=== PATIENT | female | born 1995 | race Caucasian/White ===

== ENCOUNTER → 2019-01-19 | Outpatient (CLI) | payer BC, MEDICAID ==
--- NOTE | 2019-01-19 16:22 | Diagnostic Imaging Report ---
INDICATION: survey. TECHNIQUE: Multiple real-time grayscale images were obtained over the gravid uterus. COMPARISON: There are no prior studies available for comparison. FINDINGS: There is a single live fetus in cephalic presentation. heart motion was noted, and a rate of 153 BPM was recorded. There are no abnormalities identified, but the intracranial contents, the four-chamber heart view, and the spine were not optimally visualized. A short-term (4-6 week) follow-up exam would be recommended for further study. The growth parameters are fairly uniform. The placenta is posterior, and there is no previa. The amniotic fluid volume is within normal limits. The cervix was identified and measures 3.7 cm in length. IMPRESSION: 1. There is a single live fetus of approximately 19 weeks 6 day gestation, +/- 1.5 weeks. The EDC is June 09, 2019. 2. There were no abnormalities identified. However, the intracranial contents, four-chamber heart view, and the spine were not optimally visualized. Recommendations as above. 3. The growth parameters are fairly uniform. Biometrical measurements are as follows: Biparietal 4.49 cm, age 19 weeks 5 days. Head circumference 17.55 cm, age 20 weeks 1 days. Abdominal circumference 13.57 cm, age 19 weeks 1 days. Femur length 3.18 cm, age 20 weeks 0 days. Sonographic estimate age: 19 weeks 6 days. Sonographic estimated date of delivery: 06/09/2019. Estimated Weight: 296 gm (+/- 43 gm). LMP percentile: 58%. heart rate: 153 beats per minute. number: 1 of 1. Dictated by: Dictated on workstation # [id number]
== END ==
LOC: RAD 13:56
PROVIDERS: ATTEND Nurse Practitioner Women's Health
DX: Z36.89 Encounter for other specified antenatal screening (principal); Z3A.19 19 weeks gestation of pregnancy
CPT/HCPCS: 76805

== ENCOUNTER → 2019-02-19 | Outpatient (CLI) | payer BC, MEDICAID ==
--- NOTE | 2019-02-19 15:14 | Diagnostic Imaging Report ---
INDICATION: Follow-up anatomy. TECHNIQUE: Multiple real-time grayscale images were obtained over the gravid uterus. COMPARISON: 01/19/2019. FINDINGS: There is a single live fetus in a cephalic presentation. heart rate was recorded at 147 BPM. Placenta is posterior. Amniotic fluid volume appears normal. Follow-up anatomy demonstrates the brain, four-chamber heart view, and spine to be unremarkable on today's exam. IMPRESSION: Unremarkable follow-up obstetrical ultrasound. Dictated by: Dictated on workstation # [id number]
== END ==
LOC: RAD 13:25
PROVIDERS: ATTEND Obstetrics & Gynecology
DX: Z04.89 Encounter for examination and observation for other specified reasons (principal); Z34.92 Encounter for supervision of normal pregnancy, unspecified, second trimester; Z3A.00 Weeks of gestation of pregnancy not specified
CPT/HCPCS: 76805

== ENCOUNTER 2019-05-05 11:50 | Outpatient (CLI) | payer BC, MEDICAID ==
[~2019-05-05] VITALS: Ht 172.7 cm; Wt 119.5 kg
--- NOTE | 2019-05-05 11:45 | NUR ---
CHASE LOVELL presented to unit via AMBULATORY from HOME, with c/o POSS. PRE CLAMPSIA. CHASE LOVELL weighed, gowned, voided, and to bed. EFHM and TOCO applied, VS taken. CHASE LOVELL oriented to bed controls, call light, TV, heat, and A/C controls.
[2019-05-05 11:57] VITALS: BP 108/56
[2019-05-05 12:13] VITALS: BP 108/56
[2019-05-05 12:15] LABS: BILIRUBIN,URINE NEGATIVE (NEGATIVE); CLARITY,URINE CLEAR; COLOR,URINE YELLOW; GLUCOSE, URINE (UA) NEGATIVE (NEGATIVE); KETONES,URINE NEGATIVE (NEGATIVE); LEUKOCYTE ESTERASE ,URINE 3+ (NEGATIVE); NITRITE,URINE NEGATIVE (NEGATIVE); PH,URINE 6.5 (5-9); PROTEIN,URINE NEGATIVE (NEGATIVE)
[2019-05-05 12:17] VITALS: BP 102/63
[2019-05-05] MEDS ORDERED: PREN-37 PO (12:19)
[2019-05-05 12:39] LABS: BACTERIA,URINE TRACE /HPF; SQUAMOUS EPITHELIAL CELL,UR RARE /HPF
--- NOTE | 2019-05-05 13:24 | NUR ---
DR. SANTIAGO ON UNIT. NOTIFIED OF PT'S ARRIVAL, C/O, GESTATION, VS, REVIEW OF STRIP, UA RESULTS. ORDERS RECEIVED TO DISCHARGE HOME.
--- NOTE | 2019-05-05 13:45 | NUR ---
DISCHARGE PAPERS PROVIDED AND REVIEWED WITH PT, PT VERBALIZES UNDERSTANDING AND DENIES ANY QUESTIONS AT THIS TIME. PAPER SIGNED. PT AMBULATES OFF UNIT IN STABLE CONDITION ACC BY S/O.
--- NOTE | 2019-05-06 08:29 | Physician Query-Final Dx ---
ROMAIN JOHNSON 05/06/19 0829: Clinic Account Progress/Dx Physician Query: Please give diagnosis Please include # weeks gestation Date of Service May 05, 2019 at 11:50 KATRIN SANTIAGO DO 05/15/19 1410: Clinic Account Progress/Dx DIAGNOSIS: Diagnosis 34 week gestation worried well ROMAIN JOHNSON May 06, 2019 08:29 KATRIN SANTIAGO DO May 15, 2019 14:10
== END 2019-05-05 13:45 | disposition home or self-care (01) ==
LOC: WSo 11:50 → LDRP 11:51 → WSo 13:45
PROVIDERS: ATTEND Obstetrics & Gynecology
DX: O99.89 Other specified diseases and conditions complicating pregnancy, childbirth and the puerperium (principal); Z3A.34 34 weeks gestation of pregnancy
CPT/HCPCS: 81000; 87088; 99212

== ENCOUNTER 2019-06-08 20:23 | Inpatient (IN) | payer BC, MEDICAID ==
[~2019-06-08] VITALS: Ht 172.7 cm; Wt 121.0 kg
--- NOTE | 2019-06-08 20:20 | NUR ---
CHASE LOVELL presented to unit via ambulation from ED, accompanied by s.o., with c/o CONTRACTIONS. CHASE LOVELL weighed, gowned, voided, and to bed. EFHM and TOCO applied, VS taken. CHASE LOVELL oriented to bed controls, call light, TV, heat, and A/C controls.
[~2019-06-08 20:23] MED LIST: PREN-37 PO
[2019-06-08 20:37] VITALS: BP 133/80
--- NOTE | 2019-06-08 21:30 | NUR ---
This Rn called Dr Walters to notify of patient arrival and complaints of contractions. Notified of contraction pattern, initial and latest sve, FHR variability. New orders to contact Dr Peace received.
--- NOTE | 2019-06-08 21:33 | NUR ---
This RN called Dr Peace to notify of patient arrival and complaints of contractions. Notified of arrival time, initial sve and latest, contraction pattern, vs, and FHR variability. New orders for admission received.
[2019-06-08] MEDS ORDERED: morphine INJ 10 MG/ML 1ML (SYR OR VIAL) IVP STA (21:38)
[2019-06-08] MEDS ORDERED: MINERAL OIL CONCENTRATE 99.9% 15 ML UDC TOP PRN (21:45)
--- OUTSIDE RECORDS SUMMARY | 2019-06-08 21:47 | XMS REPORT | Clinical Summary ---
Author Author Admin, Robyn EDWARDS Organization [facility] Address Unknown Phone Unavailable Allergies, Adverse Reactions, Alerts Allergy Name Reaction Description Start Date Severity Status Pr ovider No Known Allergies Jose Manuel Gaytan RMA Conditions or Problems Problem Name Problem Code Onset Date Status Entry Date Provider Comment Standard Description Annotate Upper respiratory infection 465.9 Resolved Pratik Lechuga MD Acute upper respiratory infections of un specified site Upper respiratory infection, viral 465.9 Active 2 Pratik Lechuga MD Acute upper respiratory infections of un specified site Upper respiratory infection ICD-465.9 Inactive Pratik Lechuga MD Medication List Medication Instructions Start Date Stop Date Generic Name NDC Status Provider Patient Instruction PREDNISONE 20 MG ORAL TABS 2 po qd x 4 days PRE DNISONE 84308975366 No Longer Active Pratik Lechuga MD Active NEXPLANON 68 MG SUBCUTANEOUS IMPLANT in left arm E TONOGESTREL 62469247142 Active Pratik Lechuga MD Active TESSALON PERLES 100 MG CAPS 1 three times a day as needed for co ugh BENZONATATE 08889655616 No Longer Active Pratik Lechuga MD Active TESSALON PERLES 100 MG CAPS 1 three times a day as needed for co ugh TESSALON PERLES 100 MG CAPS 676231 BENZONATATE Inac tive PREDNISONE 20 MG ORAL TABS 2 po qd x 4 days PREDNISONE 20 MG ORAL TABS 352981 PREDNISONE Inactive Vital Signs Date Name Value Unit Range Description blood pressure, diastolic 81 mm[Hg] BP bravo blood pressure, systolic 123 mm[Hg] BP sys pulse rate E&M 88 /min Heart rate temperature E&M 97.6 [degF] Body temp erature weight E&M 198.31 [lb_av] Weight Measure d blood pressure, diastolic 77 mm[Hg] BP bravo blood pressure, systolic 108 mm[Hg] BP sys height E&M 58 [in_us] Bdy height pulse rate E&M 106 /min Heart rate temperature E&M 100.4 [degF] Body temp erature weight E&M 186 [lb_av] Weight Measure d Encounters Code Encounter Date Provider Facility CPT-24915 Level 3 Est. Patient 10:59:06 CDT Pratik Lechuga MD [facility] CPT-96284 Level 2 New Patient 18:06:13 UI ARCHITECT Abad calvo MD [facility]
--- OUTSIDE RECORDS SUMMARY | 2019-06-08 21:47 | XMS REPORT | Clinical Summary ---
Author Author Admin, Robyn EDWARDS Organization [facility] Address Unknown Phone Unavailable Allergies, Adverse Reactions, Alerts Allergy Name Reaction Description Start Date Severity Status Pr ovider No Known Allergies Corrie Aldrich MA Conditions or Problems Problem Name Problem Code Onset Date Status Entry Date Provider Comment Standard Description Annotate Upper respiratory infection 465.9 Resolved Pratik Lechuga MD Acute upper respiratory infections of un specified site Upper respiratory infection, viral 465.9 Active 2 Pratik Lechuga MD Acute upper respiratory infections of un specified site Contraceptive management V25.9 Active Maria R najera MD Encounter for unspecified contraceptive management Std screening V74.5 Active Maria R You MD Screening examination for venereal disease Upper respiratory infection ICD-465.9 Inactive Pratik Lechuga MD Medication List Medication Instructions Start Date Stop Date Generic Name NDC Status Provider Patient Instruction AZITHROMYCIN 500 MG ORAL TABLET 2 tabs po x 1 AZITHROMYCIN 79051344602 No Longer Active Flori Tovar LPN Acti ve NEXPLANON 68 MG SUBCUTANEOUS IMPLANT in left arm 0 ETONOGESTREL 73388580226 No Longer Active Maria R You MD Active PREDNISONE 20 MG ORAL TABLET 2 po qd x 4 days P REDNISONE 33648945454 No Longer Active Pratik Lechuga MD Active TESSALON PERLES 100 MG ORAL CAPSULE 1 three times a day as n eeded for cough BENZONATATE 46961771431 No Longer Active Pratik Krueger MD Active TESSALON PERLES 100 MG ORAL CAPSULE 1 three times a day as n eeded for cough TESSALON PERLES 100 MG ORAL CAPSULE 399101 BENZO NATATE Inactive NEXPLANON 68 MG SUBCUTANEOUS IMPLANT in left arm 2017 NEXPLANON 68 MG SUBCUTANEOUS IMPLANT ETONOGESTREL Inactive PREDNISONE 20 MG ORAL TABLET 2 po qd x 4 days PREDNISONE 20 MG ORAL TABLET 261087 PREDNISONE Inactive AZITHROMYCIN 500 MG ORAL TABLET 2 tabs po x 1 AZITHROMYCIN 500 MG ORAL TABLET 2340413 AZITHROMYCIN Inactive Vital Signs Date Name Value Unit Range Description blood pressure, diastolic 89 mm[Hg] BP bravo blood pressure, systolic 137 mm[Hg] BP sys height E&M 58 [in_us] Bdy height pulse rate E&M 94 /min Heart rate temperature E&M 977 [degF] Body temp erature blood pressure, diastolic 81 mm[Hg] BP bravo blood pressure, systolic 123 mm[Hg] BP sys pulse rate E&M 88 /min Heart rate temperature E&M 97.6 [degF] Body temp erature weight E&M 198.31 [lb_av] Weight Measure d Diagnostic Results Date Name Value Unit Range Description Lab Report: Chlamydia/GC APTIMA/11782, H EPATITIS B S AG W/, HIV-1/2 Agn/ ... - Chemistry hepatitis B surface antigen NON-REACTIVE NON-RE ACTIVE rapid plasma reagin antibody titer NON-REACTIVE NON-REACTIVE Lab Report: Chlamydia/GC APTIMA/34838, H EPATITIS B S AG W/, HIV-1/2 Agn/ ... - Lab chlamydia DNA probe DETECTED NOT DETECTED Lab Report: Chlamydia/GC APTIMA/46632, H EPATITIS B S AG W/, HIV-1/2 Agn/ ... - Microbiology Neisseria gonorrhoeae DNA probe NOT DETECTED NO T DETECTED Office Visit: nexplanon removalt/replace ment - Chemistry human chorionic gonadotropin , urine, qualitative (urine test) Negative Encounters Code Encounter Date Provider Facility CPT-72377 Level 3 New Patient 11:53:27 SPA ASSOCIATE Maria R mitchell MD [facility] CPT-58052 Level 3 Est. Patient 10:59:06 CDT Pratik Lechuga MD [facility] CPT-56150 Level 2 New Patient 18:06:13 SPA ASSOCIATE Abad calvo MD [facility] Procedures Code Procedure Name Date Entry Date Standard Desc ription CPT-58700 Nexplanon Removal with Reinsertion 11:53:27 SPA ASSOCIATE CPT-J7307 Nexplanon (Implant) 11:53:27 SPA ASSOCIATE
--- OUTSIDE RECORDS SUMMARY | 2019-06-08 21:47 | XMS REPORT | Clinical Summary ---
Author Author Admin, Robyn EDWARDS Organization [facility] Address Unknown Phone Unavailable Allergies, Adverse Reactions, Alerts Allergy Name Reaction Description Start Date Severity Status Pr ovider Allergies Unknown Conditions or Problems Problem Name Problem Code Onset Date Status Entry Date Provider Comment Standard Description Annotate Upper respiratory infection 465.9 Active Abad Larose MD Acute upper respiratory infections of un specified site Medication List Medication Instructions Start Date Stop Date Generic Name NDC Status Provider Patient Instruction TESSALON PERLES 100 MG CAPS 1 three times a day as needed for co ugh BENZONATATE 51594766371 Active Abad Larose MD Acti ve Vital Signs Date Name Value Unit Range Description blood pressure, diastolic - 8462-4 77 mm[Hg] BP bravo blood pressure, systolic - 8480-6 108 mm[Hg] BP sys height E&M - 8302-2 58 [in_us] Bdy h eight pulse rate E&M - 8867-4 106 /min H eart rate temperature E&M 100.4 [degF] Body temp erature weight E&M - 3141-9 186 [lb_av] Weigh t Measured Encounters Code Encounter Date Provider Facility CPT-17718 Level 2 New Patient 18:06:13 ELECTRIC POWER LINE EXAMINER Abad calvo MD [facility]
--- OUTSIDE RECORDS SUMMARY | 2019-06-08 21:47 | XMS REPORT | Clinical Summary ---
Author Author Admin, Robyn EDWARDS Organization [facility] Address Unknown Phone Unavailable Allergies, Adverse [...] TABLET 2 tabs po x 1 AZITHROMYCIN 52890461578 No Longer Active Flori Tovar LPN Acti ve NEXPLANON 68 MG SUBCUTANEOUS IMPLANT in left arm 0 ETONOGESTREL 96234718553 No Longer Active Maria R You MD Active PREDNISONE 20 MG ORAL TABLET 2 po qd x 4 days P REDNISONE 75386482663 No Longer Active Pratik Lechuga MD Active TESSALON PERLES 100 MG ORAL CAPSULE 1 three times a day as n eeded for cough BENZONATATE 75708280345 No Longer Active Pratik Krueger MD Active TESSALON PERLES 100 MG ORAL CAPSULE 1 three times a day as n eeded for cough TESSALON PERLES 100 MG ORAL CAPSULE 373360 BENZO NATATE Inactive NEXPLANON 68 MG SUBCUTANEOUS IMPLANT in left arm 2017 NEXPLANON 68 MG SUBCUTANEOUS IMPLANT ETONOGESTREL Inactive PREDNISONE 20 MG ORAL TABLET 2 po qd x 4 days PREDNISONE 20 MG ORAL TABLET 313264 PREDNISONE Inactive AZITHROMYCIN 500 MG ORAL TABLET 2 tabs po x 1 AZITHROMYCIN 500 MG ORAL TABLET 3613998 AZITHROMYCIN Inactive Vital Signs Date Name Value [...] Value Unit Range Description Lab Report: Chlamydia/GC APTIMA/39217, H EPATITIS B S AG W/, HIV-1/2 Agn/ ... - Chemistry hepatitis B surface antigen NON-REACTIVE NON-RE ACTIVE rapid plasma reagin antibody titer NON-REACTIVE NON-REACTIVE Lab Report: Chlamydia/GC APTIMA/79007, H EPATITIS B S AG W/, HIV-1/2 Agn/ ... - Lab chlamydia DNA probe DETECTED NOT DETECTED Lab Report: Chlamydia/GC APTIMA/75534, H EPATITIS B S AG W/, HIV-1/2 Agn/ ... - Microbiology Neisseria gonorrhoeae DNA probe NOT DETECTED NO T DETECTED Office Visit: nexplanon removalt/replace ment - Chemistry human chorionic gonadotropin , urine, qualitative (urine test) Negative Encounters Code Encounter Date Provider Facility CPT-78193 Level 3 New Patient 11:53:27 RESIDENT PHYSICIAN Maria R mitchell MD [facility] CPT-56892 Level 3 Est. Patient 10:59:06 CDT Pratik Lechuga MD [facility] CPT-82038 Level 2 New Patient 18:06:13 RESIDENT PHYSICIAN Abad calvo MD [facility] Procedures Code Procedure Name Date Entry Date Standard Desc ription CPT-89662 Nexplanon Removal with Reinsertion 11:53:27 RESIDENT PHYSICIAN CPT-J7307 Nexplanon (Implant) 11:53:27 RESIDENT PHYSICIAN
--- OUTSIDE RECORDS SUMMARY | 2019-06-08 21:47 | XMS REPORT | Clinical Summary ---
Author Author Admin, Robyn EDWARDS Organization [facility] Address Unknown Phone Unavailable Allergies, Adverse Reactions, [...] day as needed for co ugh BENZONATATE 32914058025 Active Abad Larose MD Acti ve Vital [...] Measured Encounters Code Encounter Date Provider Facility CPT-92083 Level 2 New Patient 18:06:13 TAX STAFF ACCOUNTANT Abad calvo MD [facility]
--- OUTSIDE RECORDS SUMMARY | 2019-06-08 21:47 | XMS REPORT | Clinical Summary ---
Author Author Admin, Robyn EDWARDS Organization [facility] Address Unknown Phone Unavailable Allergies, Adverse [...] TABLET 2 tabs po x 1 AZITHROMYCIN 48192050746 No Longer Active Flori Bhagati ve NEXPLANON 68 MG SUBCUTANEOUS IMPLANT in left arm 0 ETONOGESTREL 57632008599 No Longer Active Maria R You MD Active PREDNISONE 20 MG ORAL TABLET 2 po qd x 4 days P REDNISONE 53713096756 No Longer Active Pratik Lechuga MD Active TESSALON PERLES 100 MG ORAL CAPSULE 1 three times a day as n eeded for cough BENZONATATE 99273863467 No Longer Active Pratik Krueger MD Active TESSALON PERLES 100 MG ORAL CAPSULE 1 three times a day as n eeded for cough TESSALON PERLES 100 MG ORAL CAPSULE 587004 BENZO NATATE Inactive NEXPLANON 68 MG SUBCUTANEOUS IMPLANT in left arm 2017 NEXPLANON 68 MG SUBCUTANEOUS IMPLANT ETONOGESTREL Inactive PREDNISONE 20 MG ORAL TABLET 2 po qd x 4 days PREDNISONE 20 MG ORAL TABLET 454625 PREDNISONE Inactive AZITHROMYCIN 500 MG ORAL TABLET 2 tabs po x 1 AZITHROMYCIN 500 MG ORAL TABLET 0696346 AZITHROMYCIN Inactive Vital Signs Date Name Value [...] Value Unit Range Description Lab Report: Chlamydia/GC APTIMA/13874, H EPATITIS B S AG W/, HIV-1/2 Agn/ ... - Chemistry hepatitis B surface antigen NON-REACTIVE NON-RE ACTIVE rapid plasma reagin antibody titer NON-REACTIVE NON-REACTIVE Lab Report: Chlamydia/GC APTIMA/09042, H EPATITIS B S AG W/, HIV-1/2 Agn/ ... - Lab chlamydia DNA probe DETECTED NOT DETECTED Lab Report: Chlamydia/GC APTIMA/78225, H EPATITIS B S AG W/, HIV-1/2 Agn/ ... - Microbiology Neisseria gonorrhoeae DNA probe NOT DETECTED NO T DETECTED Office Visit: nexplanon removalt/replace ment - Chemistry human chorionic gonadotropin , urine, qualitative (urine test) Negative Encounters Code Encounter Date Provider Facility CPT-65568 Level 3 New Patient 11:53:27 BACK STRIP MACHINE OPERATOR Maria R mitchell MD [facility] CPT-78740 Level 3 Est. Patient 10:59:06 CDT Pratik Lechuga MD [facility] CPT-56547 Level 2 New Patient 18:06:13 BACK STRIP MACHINE OPERATOR Abad calvo MD [facility] Procedures Code Procedure Name Date Entry Date Standard Desc ription CPT-15673 Nexplanon Removal with Reinsertion 11:53:27 BACK STRIP MACHINE OPERATOR CPT-J7307 Nexplanon (Implant) 11:53:27 BACK STRIP MACHINE OPERATOR
--- OUTSIDE RECORDS SUMMARY | 2019-06-08 21:47 | XMS REPORT | Clinical Summary ---
Author Author Admin, Robyn EDWARDS Organization [facility] Address Unknown Phone Unavailable Allergies, Adverse Reactions, [...] day as needed for co ugh BENZONATATE 71809977138 Active Abad Larose MD Acti ve Vital [...] Measured Encounters Code Encounter Date Provider Facility CPT-66276 Level 2 New Patient 18:06:13 ACCOUNT EXECUTIVE SOFTWARE SALES Abad calvo MD [facility]
--- OUTSIDE RECORDS SUMMARY | 2019-06-08 21:47 | XMS REPORT | Clinical Summary ---
Author Author Admin, Robyn EDWARDS Organization [facility] Address Unknown Phone Unavailable Allergies, Adverse [...] day as needed for co ugh BENZONATATE 47804848812 Active Abad Larose MD Acti ve Vital [...] Measured Encounters Code Encounter Date Provider Facility CPT-54341 Level 2 New Patient 18:06:13 EXPANDING MACHINE OPERATOR Abad calvo MD [facility]
--- OUTSIDE RECORDS SUMMARY | 2019-06-08 21:47 | XMS REPORT | Clinical Summary ---
Author Author Admin, Robyn EDWARDS Organization [facility] Address Unknown Phone Unavailable Allergies, [...] po qd x 4 days PRE DNISONE 82760959675 Active Pratik Lechuga MD Active NEXPLANON 68 MG SUBCUTANEOUS IMPLANT in left arm E TONOGESTREL 75441917638 Active Pratik Lechuga MD Active TESSALON PERLES 100 MG CAPS 1 three times a day as needed for co ugh BENZONATATE 25031730833 No Longer Active Pratik Lechuga MD Active TESSALON PERLES 100 MG CAPS 1 three times a day as needed for co ugh TESSALON PERLES 100 MG CAPS 241824 BENZONATATE Inac tive Vital Signs Date Name Value Unit Range [...] d Encounters Code Encounter Date Provider Facility CPT-41956 Level 3 Est. Patient 10:59:06 CDT Pratik Lechuga MD [facility] CPT-89597 Level 2 New Patient 18:06:13 RAND CEMENTER Abad calvo MD [facility]
--- OUTSIDE RECORDS SUMMARY | 2019-06-08 21:47 | XMS REPORT | Clinical Summary ---
Author Author Admin, Robyn EDWARDS Organization [facility] Address Unknown Phone Unavailable Allergies, [...] day as needed for co ugh BENZONATATE 12806013424 Active Abad Larose MD Acti ve Vital [...] Measured Encounters Code Encounter Date Provider Facility CPT-29822 Level 2 New Patient 18:06:13 NEWS ASSISTANT Abad calvo MD [facility]
--- OUTSIDE RECORDS SUMMARY | 2019-06-08 21:47 | XMS REPORT | Clinical Summary ---
Author Author Admin, Robyn EDWARDS Organization [facility] Address Unknown Phone Unavailable Allergies, Adverse [...] po qd x 4 days PRE DNISONE 49232919025 Active Pratik Lechuga MD Active NEXPLANON 68 MG SUBCUTANEOUS IMPLANT in left arm E TONOGESTREL 60742265745 Active Pratik Lechuga MD Active TESSALON PERLES 100 MG CAPS 1 three times a day as needed for co ugh BENZONATATE 34797586298 No Longer Active Pratik Lechuga MD Active TESSALON PERLES 100 MG CAPS 1 three times a day as needed for co ugh TESSALON PERLES 100 MG CAPS 412716 BENZONATATE Inac tive Vital Signs Date Name [...] d Encounters Code Encounter Date Provider Facility CPT-20603 Level 3 Est. Patient 10:59:06 CDT Pratik Lechuga MD [facility] CPT-89331 Level 2 New Patient 18:06:13 MOVIE PROJECTIONIST Abad calvo MD [facility]
--- OUTSIDE RECORDS SUMMARY | 2019-06-08 21:47 | XMS REPORT | Clinical Summary ---
Author Author Admin, Robyn EDWARDS Organization [facility] Address Unknown Phone Unavailable Allergies, Adverse Reactions, [...] TABLET 2 tabs po x 1 AZITHROMYCIN 43654259317 No Longer Active Flori Tovar LPN Acti ve NEXPLANON 68 MG SUBCUTANEOUS IMPLANT in left arm 0 ETONOGESTREL 05829272751 No Longer Active Maria R You MD Active PREDNISONE 20 MG ORAL TABLET 2 po qd x 4 days P REDNISONE 25835151727 No Longer Active Pratik Lechuga MD Active TESSALON PERLES 100 MG ORAL CAPSULE 1 three times a day as n eeded for cough BENZONATATE 57641943249 No Longer Active Pratik Krueger MD Active TESSALON PERLES 100 MG ORAL CAPSULE 1 three times a day as n eeded for cough TESSALON PERLES 100 MG ORAL CAPSULE 985495 BENZO NATATE Inactive NEXPLANON 68 MG SUBCUTANEOUS IMPLANT in left arm 2017 NEXPLANON 68 MG SUBCUTANEOUS IMPLANT ETONOGESTREL Inactive PREDNISONE 20 MG ORAL TABLET 2 po qd x 4 days PREDNISONE 20 MG ORAL TABLET 216707 PREDNISONE Inactive AZITHROMYCIN 500 MG ORAL TABLET 2 tabs po x 1 AZITHROMYCIN 500 MG ORAL TABLET 4924395 AZITHROMYCIN Inactive Vital Signs Date Name Value [...] Value Unit Range Description Lab Report: Chlamydia/GC APTIMA/13864, H EPATITIS B S AG W/, HIV-1/2 Agn/ ... - Chemistry hepatitis B surface antigen NON-REACTIVE NON-RE ACTIVE rapid plasma reagin antibody titer NON-REACTIVE NON-REACTIVE Lab Report: Chlamydia/GC APTIMA/61678, H EPATITIS B S AG W/, HIV-1/2 Agn/ ... - Lab chlamydia DNA probe DETECTED NOT DETECTED Lab Report: Chlamydia/GC APTIMA/72597, H EPATITIS B S AG W/, HIV-1/2 Agn/ ... - Microbiology Neisseria gonorrhoeae DNA probe NOT DETECTED NO T DETECTED Office Visit: nexplanon removalt/replace ment - Chemistry human chorionic gonadotropin , urine, qualitative (urine test) Negative Encounters Code Encounter Date Provider Facility CPT-16847 Level 3 New Patient 11:53:27 PLATFORM SUPERVISOR Maria R mitchell MD [facility] CPT-67464 Level 3 Est. Patient 10:59:06 CDT Pratik Lechuga MD [facility] CPT-89949 Level 2 New Patient 18:06:13 PLATFORM SUPERVISOR Abad calvo MD [facility] Procedures Code Procedure Name Date Entry Date Standard Desc ription CPT-24316 Nexplanon Removal with Reinsertion 11:53:27 PLATFORM SUPERVISOR CPT-J7307 Nexplanon (Implant) 11:53:27 PLATFORM SUPERVISOR
--- OUTSIDE RECORDS SUMMARY | 2019-06-08 21:47 | XMS REPORT | Clinical Summary ---
Author Author Admin, Robyn EDWARDS Organization [facility] Address Unknown Phone Unavailable Allergies, Adverse [...] TABLET 2 tabs po x 1 AZITHROMYCIN 01363529501 No Longer Active Flori Tovar LPN Acti ve NEXPLANON 68 MG SUBCUTANEOUS IMPLANT in left arm 0 ETONOGESTREL 40606027011 No Longer Active Maria R You MD Active PREDNISONE 20 MG ORAL TABLET 2 po qd x 4 days P REDNISONE 96391522807 No Longer Active Pratik Lechuga MD Active TESSALON PERLES 100 MG ORAL CAPSULE 1 three times a day as n eeded for cough BENZONATATE 51585339331 No Longer Active Pratik Krueger MD Active TESSALON PERLES 100 MG ORAL CAPSULE 1 three times a day as n eeded for cough TESSALON PERLES 100 MG ORAL CAPSULE 405968 BENZO NATATE Inactive NEXPLANON 68 MG SUBCUTANEOUS IMPLANT in left arm 2017 NEXPLANON 68 MG SUBCUTANEOUS IMPLANT ETONOGESTREL Inactive PREDNISONE 20 MG ORAL TABLET 2 po qd x 4 days PREDNISONE 20 MG ORAL TABLET 675185 PREDNISONE Inactive AZITHROMYCIN 500 MG ORAL TABLET 2 tabs po x 1 AZITHROMYCIN 500 MG ORAL TABLET 4669700 AZITHROMYCIN Inactive Vital Signs Date Name Value [...] Value Unit Range Description Lab Report: Chlamydia/GC APTIMA/53802, H EPATITIS B S AG W/, HIV-1/2 Agn/ ... - Chemistry hepatitis B surface antigen NON-REACTIVE NON-RE ACTIVE rapid plasma reagin antibody titer NON-REACTIVE NON-REACTIVE Lab Report: Chlamydia/GC APTIMA/57647, H EPATITIS B S AG W/, HIV-1/2 Agn/ ... - Lab chlamydia DNA probe DETECTED NOT DETECTED Lab Report: Chlamydia/GC APTIMA/80712, H EPATITIS B S AG W/, HIV-1/2 Agn/ ... - Microbiology Neisseria gonorrhoeae DNA probe NOT DETECTED NO T DETECTED Office Visit: nexplanon removalt/replace ment - Chemistry human chorionic gonadotropin , urine, qualitative (urine test) Negative Encounters Code Encounter Date Provider Facility CPT-18475 Level 3 New Patient 11:53:27 CURRICULUM DEVELOPMENT COORDINATOR Maria R mitchell MD [facility] CPT-32975 Level 3 Est. Patient 10:59:06 CDT Pratik Lechuga MD [facility] CPT-64032 Level 2 New Patient 18:06:13 CURRICULUM DEVELOPMENT COORDINATOR Abad calvo MD [facility] Procedures Code Procedure Name Date Entry Date Standard Desc ription CPT-28316 Nexplanon Removal with Reinsertion 11:53:27 CURRICULUM DEVELOPMENT COORDINATOR CPT-J7307 Nexplanon (Implant) 11:53:27 CURRICULUM DEVELOPMENT COORDINATOR
--- OUTSIDE RECORDS SUMMARY | 2019-06-08 21:47 | XMS REPORT | Clinical Summary ---
Author Author Admin, Robyn EDWARDS Organization [facility] Address Unknown Phone Unavailable Allergies, Adverse Reactions, Alerts Allergy Name Reaction Description Start Date Severity Status Pr ovider No Known Allergies Wayneperi Condonehart RMA Conditions or Problems Problem Name Problem [...] Generic Name NDC Status Provider Patient Instruction NEXPLANON 68 MG SUBCUTANEOUS IMPLANT in left arm 0 ETONOGESTREL 28476601016 No Longer Active Maria R You MD Active PREDNISONE 20 MG ORAL TABLET 2 po qd x 4 days P REDNISONE 88001132667 No Longer Active Pratik Lechuga MD Active TESSALON PERLES 100 MG ORAL CAPSULE 1 three times a day as n eeded for cough BENZONATATE 85821999614 No Longer Active Pratik Krueger MD Active TESSALON PERLES 100 MG ORAL CAPSULE 1 three times a day as n eeded for cough TESSALON PERLES 100 MG ORAL CAPSULE 372840 BENZO NATATE Inactive NEXPLANON 68 MG SUBCUTANEOUS IMPLANT in left arm 2017 NEXPLANON 68 MG SUBCUTANEOUS IMPLANT ETONOGESTREL Inactive PREDNISONE 20 MG ORAL TABLET 2 po qd x 4 days PREDNISONE 20 MG ORAL TABLET 842866 PREDNISONE Inactive Vital Signs Date Name Value Unit Range Description blood pressure, diastolic 81 mm[Hg] BP bravo blood pressure, systolic 123 mm[Hg] BP sys pulse rate E&M 88 /min Heart rate temperature E&M 97.6 [degF] Body temp erature weight E&M 198.31 [lb_av] Weight Measure d Diagnostic Results Date Name Value Unit Range Description Lab Report: Chlamydia/GC APTIMA/39751, H EPATITIS B S AG W/, HIV-1/2 Agn/ ... - Chemistry hepatitis B surface antigen NON-REACTIVE NON-RE ACTIVE rapid plasma reagin antibody titer NON-REACTIVE NON-REACTIVE Lab Report: Chlamydia/GC APTIMA/41787, H EPATITIS B S AG W/, HIV-1/2 Agn/ ... - Lab chlamydia DNA probe DETECTED NOT DETECTED Lab Report: Chlamydia/GC APTIMA/84233, H EPATITIS B S AG W/, HIV-1/2 Agn/ ... - Microbiology Neisseria gonorrhoeae DNA probe NOT DETECTED NO T DETECTED Encounters Code Encounter Date Provider Facility CPT-57266 Level 3 New Patient 11:53:27 BUSINESS DEVELOPMENT REPRESENTATIVE Maria R mitchell MD [facility] CPT-62251 Level 3 Est. Patient 10:59:06 CDT Pratik Lechuga MD [facility] CPT-57988 Level 2 New Patient 18:06:13 BUSINESS DEVELOPMENT REPRESENTATIVE Abad calvo MD [facility] Procedures Code Procedure Name Date Entry Date Standard Desc ription CPT-13735 Nexplanon Removal with Reinsertion 11:53:27 BUSINESS DEVELOPMENT REPRESENTATIVE CPT-J7307 Nexplanon (Implant) 11:53:27 BUSINESS DEVELOPMENT REPRESENTATIVE
--- OUTSIDE RECORDS SUMMARY | 2019-06-08 21:47 | XMS REPORT | Clinical Summary ---
Author Author Admin, Robyn EDWARDS Organization [facility] Address Unknown Phone Unavailable Allergies, Adverse [...] TABLET 2 tabs po x 1 AZITHROMYCIN 61722128367 No Longer Active Flori Tovar LPN Acti ve NEXPLANON 68 MG SUBCUTANEOUS IMPLANT in left arm 0 ETONOGESTREL 46356861363 No Longer Active Maria R You MD Active PREDNISONE 20 MG ORAL TABLET 2 po qd x 4 days P REDNISONE 00667348594 No Longer Active Pratik Lechuga MD Active TESSALON PERLES 100 MG ORAL CAPSULE 1 three times a day as n eeded for cough BENZONATATE 94949027091 No Longer Active Pratik Krueger MD Active TESSALON PERLES 100 MG ORAL CAPSULE 1 three times a day as n eeded for cough TESSALON PERLES 100 MG ORAL CAPSULE 171421 BENZO NATATE Inactive NEXPLANON 68 MG SUBCUTANEOUS IMPLANT in left arm 2017 NEXPLANON 68 MG SUBCUTANEOUS IMPLANT ETONOGESTREL Inactive PREDNISONE 20 MG ORAL TABLET 2 po qd x 4 days PREDNISONE 20 MG ORAL TABLET 592977 PREDNISONE Inactive AZITHROMYCIN 500 MG ORAL TABLET 2 tabs po x 1 AZITHROMYCIN 500 MG ORAL TABLET 7801955 AZITHROMYCIN Inactive Vital Signs Date Name Value [...] Value Unit Range Description Lab Report: Chlamydia/GC APTIMA/65385, H EPATITIS B S AG W/, HIV-1/2 Agn/ ... - Chemistry hepatitis B surface antigen NON-REACTIVE NON-RE ACTIVE rapid plasma reagin antibody titer NON-REACTIVE NON-REACTIVE Lab Report: Chlamydia/GC APTIMA/96727, H EPATITIS B S AG W/, HIV-1/2 Agn/ ... - Lab chlamydia DNA probe DETECTED NOT DETECTED Lab Report: Chlamydia/GC APTIMA/56246, H EPATITIS B S AG W/, HIV-1/2 Agn/ ... - Microbiology Neisseria gonorrhoeae DNA probe NOT DETECTED NO T DETECTED Office Visit: nexplanon removalt/replace ment - Chemistry human chorionic gonadotropin , urine, qualitative (urine test) Negative Encounters Code Encounter Date Provider Facility CPT-68911 Level 3 New Patient 11:53:27 PACK PRESS OPERATOR Maria R mitchell MD [facility] CPT-27439 Level 3 Est. Patient 10:59:06 CDT Pratik Lechuga MD [facility] CPT-65307 Level 2 New Patient 18:06:13 PACK PRESS OPERATOR Abad calvo MD [facility] Procedures Code Procedure Name Date Entry Date Standard Desc ription CPT-84422 Nexplanon Removal with Reinsertion 11:53:27 PACK PRESS OPERATOR CPT-J7307 Nexplanon (Implant) 11:53:27 PACK PRESS OPERATOR
--- OUTSIDE RECORDS SUMMARY | 2019-06-08 21:48 | XMS REPORT | Clinical Summary ---
[...] po qd x 4 days PRE DNISONE 21084769033 No Longer Active Pratik Lechuga MD Active NEXPLANON 68 MG SUBCUTANEOUS IMPLANT in left arm E TONOGESTREL 03893135961 Active Pratik Lechuga MD Active TESSALON PERLES 100 MG CAPS 1 three times a day as needed for co ugh BENZONATATE 14001642928 No Longer Active Pratik Lechuga MD Active TESSALON PERLES 100 MG CAPS 1 three times a day as needed for co ugh TESSALON PERLES 100 MG CAPS 353153 BENZONATATE Inac tive PREDNISONE 20 MG ORAL TABS 2 po qd x 4 days PREDNISONE 20 MG ORAL TABS 846076 PREDNISONE Inactive Vital Signs Date Name Value [...] d Encounters Code Encounter Date Provider Facility CPT-47140 Level 3 Est. Patient 10:59:06 CDT Pratik Lechuga MD [facility] CPT-84146 Level 2 New Patient 18:06:13 WARP TENSION TESTER Abad calvo MD [facility]
--- OUTSIDE RECORDS SUMMARY | 2019-06-08 21:48 | XMS REPORT | Clinical Summary ---
Author Author Admin, Robyn EDWARDS Organization [facility] Address Unknown Phone Unavailable Allergies, Adverse Reactions, [...] TABLET 2 tabs po x 1 AZITHROMYCIN 21432659383 No Longer Active Flori Tovar LPN Acti ve NEXPLANON 68 MG SUBCUTANEOUS IMPLANT in left arm 0 ETONOGESTREL 97621777248 No Longer Active Maria R You MD Active PREDNISONE 20 MG ORAL TABLET 2 po qd x 4 days P REDNISONE 24055592359 No Longer Active Pratik Lechuga MD Active TESSALON PERLES 100 MG ORAL CAPSULE 1 three times a day as n eeded for cough BENZONATATE 63604073145 No Longer Active Pratik Krueger MD Active TESSALON PERLES 100 MG ORAL CAPSULE 1 three times a day as n eeded for cough TESSALON PERLES 100 MG ORAL CAPSULE 943402 BENZO NATATE Inactive NEXPLANON 68 MG SUBCUTANEOUS IMPLANT in left arm 2017 NEXPLANON 68 MG SUBCUTANEOUS IMPLANT ETONOGESTREL Inactive PREDNISONE 20 MG ORAL TABLET 2 po qd x 4 days PREDNISONE 20 MG ORAL TABLET 684092 PREDNISONE Inactive AZITHROMYCIN 500 MG ORAL TABLET 2 tabs po x 1 AZITHROMYCIN 500 MG ORAL TABLET 6116619 AZITHROMYCIN Inactive Vital Signs Date Name Value [...] Value Unit Range Description Lab Report: Chlamydia/GC APTIMA/82479, H EPATITIS B S AG W/, HIV-1/2 Agn/ ... - Chemistry hepatitis B surface antigen NON-REACTIVE NON-RE ACTIVE rapid plasma reagin antibody titer NON-REACTIVE NON-REACTIVE Lab Report: Chlamydia/GC APTIMA/75006, H EPATITIS B S AG W/, HIV-1/2 Agn/ ... - Lab chlamydia DNA probe DETECTED NOT DETECTED Lab Report: Chlamydia/GC APTIMA/67559, H EPATITIS B S AG W/, HIV-1/2 Agn/ ... - Microbiology Neisseria gonorrhoeae DNA probe NOT DETECTED NO T DETECTED Office Visit: nexplanon removalt/replace ment - Chemistry human chorionic gonadotropin , urine, qualitative (urine test) Negative Encounters Code Encounter Date Provider Facility CPT-91157 Level 3 New Patient 11:53:27 CLINICAL ENGINEERING MANAGER Maria R mitchell MD [facility] CPT-91591 Level 3 Est. Patient 10:59:06 CDT Pratik Lechuga MD [facility] CPT-00527 Level 2 New Patient 18:06:13 CLINICAL ENGINEERING MANAGER Abad calvo MD [facility] Procedures Code Procedure Name Date Entry Date Standard Desc ription CPT-17850 Nexplanon Removal with Reinsertion 11:53:27 CLINICAL ENGINEERING MANAGER CPT-J7307 Nexplanon (Implant) 11:53:27 CLINICAL ENGINEERING MANAGER
--- OUTSIDE RECORDS SUMMARY | 2019-06-08 21:48 | XMS REPORT | CCD ---
Author Author Robyn Rasheed Organization Kasie Bautista MD, [facility] Address [address] [place] [address] Phone Care Team Providers Care Carpenter/Labor Name Role Phone PP Unavailable CCM Unavailable Summary Purpose Interface Exchange Insurance Providers Payer name Policy type / Coverage type Covered green party ID Effective Begin Date Effective End Date Blue Cross [facility] e Cross/Blue Shield [id number] Unknown Unknown Family history Father Diagnosis Age At Onset Skin cancer Unknown genetic disease Unknown Hypertension Unknown defect Unknown Hyperlipidemia Unknown Sister Diagnosis Age At Onset kidney disease Unknown Depression Unknown Asthma Unknown Brother Diagnosis Age At Onset Asthma Unknown Mother Diagnosis Age At Onset Depression Unknown Asthma Unknown Arthritis Unknown Skin cancer Unknown Social History Social History Element Codes Description Effective Dates Number of children Unknown 0 07/02/[address]: 05276750 Current every day smoker 07/02/2018 Number of years using tobacco Unknown 1 - 5 07/02/2018 Number of cigarettes/day Unknown < 10 07/02/[address]: 318300 Currently drinks alcohol 07/02/2018 Frequency of drinks SNOMED CT: 452584941 1-4 drinks per week 07/02/2018 Allergies, Adverse Reactions, Alerts Substance Reaction Codes Entered Date Inactivated Date Status NO KNOWN DRUG ALLERGIES Unknown 07/03/2018 No Inactive Date Active Past Medical History Illness Codes Condition Status Onset Date Resolved Date Low back pain ICD-9: 724.2 ICD-10: M54.5 Active 07/03/2018 Unknown Problems Condition Codes Effectiv e Dates Condition Status Low back pain ICD-9: 724.2 ICD-10: M54.5 07/03/2018 Active Medications Medication Codes Instruc tions Start Date Stop Date Sta tus Fill Instructions naproxen 500 mg tablet RxNorm: 072044 1 Tablet(s) PO BID 07/03/2018 07/07/2018 Active Medication Administered No Medication Administered data Immunizations No Immunization data Assessments Condition Codes Effectiv e Dates Low back pain ICD-10: M54.5 ICD-9: 724.2 07/03/2018 Reason For Visit Reason For Visit Effective Dates Notes back pain 07/03/2018 Results No Results data Review of Systems System Result Effective Dates Constitutional No recent illness 07/03/2018 Constitutional No chills 07/03/2018 Constitutional No diaphoresis 07/03/2018 Constitutional No fever 07/03/2018 Eyes No eye erythema 10/2018 Ears/Nose/Throat/Neck No nasal allergies 07/03/2018 Ears/Nose/Throat/Neck No nasal discharge 07/03/2018 Cardiovascular No chest pain/pressure 07/03/2018 Cardiovascular No dyspnea 07/03/2018 Respiratory No chest congestion 07/03/2018 Respiratory No cough 10/2018 Gastrointestinal No abdominal pain 07/03/2018 Gastrointestinal No constipation 07/03/2018 Gastrointestinal No diarrhea 07/03/2018 Gastrointestinal No hematochezia 07/03/2018 Gastrointestinal No melena 07/03/2018 Gastrointestinal No nausea 07/03/2018 Gastrointestinal No vomiting 07/03/2018 Musculoskeletal No joint complaint 07/03/2018 Dermatologic No rash 10/2018 Neurologic No alteration of consciousness 07/03/2018 Neurologic No mental status change 07/03/2018 Physical Exam Exam Name System Name It em Name Status Result Effective Dates Notes Full Exam - General 1994 Constitutional general appearance Overall: well developed 07/03/2018 None Full Exam - General 1994 Constitutional general appearance Overall: in no acute distress 07/03/2018 None Full Exam - General 1994 Constitutional general appearance Overall: well nourished 07/03/2018 None Full Exam - General 1994 Eyes conjunctiva/eyelids Overall: conjunctiva clear 07/03/2018 None Full Exam - General 1994 Eyes conjunctiva/eyelids Overall: cornea clear 07/03/2018 None Full Exam - General 1994 Eyes conjunctiva/eyelids Overall: eyelids normal 07/03/2018 None Full Exam - General 1994 Eyes pupils and irises Overall: pupils equal, round, reactive to light and accomodation 07/03/2018 None Full Exam - General 1994 Ears/Nose/Throat otoscopic exam Overall: external auditory canals clear 07/03/2018 None Full Exam - General 1994 Ears/Nose/Throat otoscopic exam Overall: tympanic membranes clear 07/03/2018 None Full Exam - General 1994 Ears/Nose/Throat lips/teeth/gingiva Overall: benign lips 07/03/2018 None Full Exam - General 1994 Ears/Nose/Throat oral cavity/pharynx/larynx Overall: oral mucosa clear 07/03/2018 None Full Exam - General 1994 Ears/Nose/Throat oral cavity/pharynx/larynx Overall: oropharyngeal mucosa clear 07/03/2018 None Full Exam - General 1994 Respiratory auscultation Overall: breath sounds clear bilaterally 07/03/2018 None Full Exam - General 1994 Respiratory respiratory effort/rhythm Overall: no retractions 07/03/2018 None Full Exam - General 1994 Respiratory respiratory effort/rhythm Overall: normal rate 07/03/2018 None Full Exam - General 1994 Cardiovascular extremities Overall: no clubbing 07/03/2018 None Full Exam - General 1994 Cardiovascular auscultation of heart Overall: regular rate 07/03/2018 None Full Exam - General 1994 Cardiovascular auscultation of heart Overall: normal heart sounds 07/03/2018 None Full Exam - General 1994 Abdomen abdominal exam Overall: no tenderness 07/03/2018 None Full Exam - General 1994 Abdomen abdominal exam Overall: normal bowel sounds 07/03/2018 None Full Exam - General 1994 Musculoskeletal gait and station Overall: normal gait 07/03/2018 None Full Exam - General 1994 Musculoskeletal gait and station Overall: normal station 07/03/2018 None Full Exam - General 1994 Musculoskeletal head and neck Overall: head atraumatic 07/03/2018 None Full Exam - General 1994 Neurologic cranial nerves Overall: crainial nerves 2 - 12 grossly intact 07/03/2018 None Full Exam - General 1994 Psychiatric orientation/consciousness Overall: oriented to person, place and time 07/03/2018 None Full Exam - General 1994 Psychiatric mood and affect Overall: normal mood and affect 07/03/2018 None Full Exam - General 1994 Psychiatric appearance Overall: well-groomed, good eye contact 07/03/2018 None Full Exam - General 1994 Musculoskeletal spine, ribs and pelvis Spine: tender @ lumbar spine 07/03/2018 None Full Exam - General 1994 Musculoskeletal spine, ribs and pelvis Sacroiliac joints: tender left sacroiliac joint 07/03/2018 None Procedures No Procedures data Vital Signs Date Vital 07/03/2018 Blood Pressure 1: 128/72 Code: 8480-6 BMI: 39.2 Code: 84569-5 Heart Rate 1: 86 bpm Height: 5'8" SpO2: 98% Weight: 258 lbs Functional Status No Functional Status data History of Present Illness Symptom Name Status Resu lt Effective Date Notes Location lumbar-sacral spine 07/03/2018 None Quality acute 07/03/2018 None Onset and Resolution s udden in onset 07/03/2018 None Pertinent Findings Den ies fever 07/03/2018 None Advance Directives No Advance Directive data Encounters Encounter Performer Loca tion Codes Date OFFICE VISIT, NEW - LEVEL 4 Diagnosis: Low back pain[ICD10: M54.5] Kriss Bautista MD, [facility] CPT-4: 75989 07/03/2018 Plan of Care Planned Activity Notes C odes Status Date Care Plan: Referral Order SNOMED-CT : 932487216 Pending 07/04/2018 Visit Plan: Low back pain- the gisella ent was instructed in appropriate posture, need for weight loss to alleviate abdominal obesity that is worsening the patient's back pain.. The pt is to use prn antiinflammatories to manage acute pain. The patient is to call the office if the pain is worsening or does not improve. 07/03/2018 Appointment: Kriss Rasheed WPtel: [address] [place], [place] [phone] New Patient 07/03/2018 Patient Education: Patient Medication Summary Completed 07/03/2018 Patient Education: Back Pain Completed 07/03/2018 Referral: Kathia Peace WPtel: [address] [place], [place] [id number] Referral Initiated Instructions Comment . Low back pain- the patient was instructed in appropriate posture, need for weight loss to alleviate abdominal obesity that is worsening the patient's back pain.. The pt is to use prn antiinflammatories to manage acute pain. The patient is to call the office if the pain is worsening or does not improve.
--- OUTSIDE RECORDS SUMMARY | 2019-06-08 21:48 | XMS REPORT | CCD ---
Author Author Robyn Rasheed Organization Kasie Bautista MD, [facility] Address [address] [place] [address] Phone Care Team Providers Care Factory Superintendent Name Role Phone PP Unavailable CCM Unavailable Summary Purpose Interface Exchange Insurance Providers Payer name Policy type / Coverage type Covered alliance party ID Effective Begin Date Effective End Date Blue Cross [facility] e Cross/Blue Shield [id number] Unknown Unknown Family history Father Diagnosis Age [...] Unknown 0 07/02/[address]: 82471440 Current every day smoker 07/02/2018 Number of years using tobacco Unknown 1 - 5 07/02/2018 Number of cigarettes/day Unknown < 10 07/02/[address]: 306016 Currently drinks alcohol 07/02/2018 Frequency of drinks SNOMED CT: 222870943 1-4 drinks per week 07/02/2018 Allergies, Adverse [...] Fill Instructions naproxen 500 mg tablet RxNorm: 522077 1 Tablet(s) PO BID 07/03/2018 07/07/2018 Active [...] 1: 128/72 Code: 8480-6 BMI: 39.2 Code: 10045-6 Heart Rate 1: 86 bpm Height: 5'8" [...] Low back pain[ICD10: M54.5] Kriss Bautista MD, [facility] CPT-4: 80851 07/03/2018 Plan of Care Planned Activity Notes C odes Status Date Care Plan: Referral Order SNOMED-CT : 457474330 Pending 07/04/2018 Visit Plan: Low back pain- the gisella ent was instructed in appropriate posture, need for weight loss to alleviate abdominal obesity that is worsening the patient's back pain.. The pt is to use prn antiinflammatories to manage acute pain. The patient is to call the office if the pain is worsening or does not improve. 07/03/2018 Appointment: Kriss Rasheed WPtel: [address] [place], [place] [phone] New Patient 07/03/2018 Patient Education: Patient Medication Summary Completed 07/03/2018 Patient Education: Back Pain Completed 07/03/2018 Referral: Kathia Peace WPtel: [address] [place], [place] [phone] Referral Initiated Instructions Comment . Low back [...]
[2019-06-08] MEDS: D5 LR IV SOLUTION 1,000 ML IV SCH (21:57)
[2019-06-08] MEDS ORDERED: CATHETER FLUSH 10 ML SYR IV SCH (22:00)
[2019-06-08 22:15] LABS: BILIRUBIN,URINE NEGATIVE (NEGATIVE); CLARITY,URINE SL CLOUDY; COLOR,URINE YELLOW; GLUCOSE, URINE (UA) NEGATIVE (NEGATIVE); KETONES,URINE NEGATIVE (NEGATIVE); LEUKOCYTE ESTERASE ,URINE 1+ (NEGATIVE); NITRITE,URINE NEGATIVE (NEGATIVE); PH,URINE 7.5 (5-9); PROTEIN,URINE NEGATIVE (NEGATIVE)
[2019-06-08 22:27] LABS: BACTERIA,URINE TRACE /HPF
[2019-06-08 22:29] LABS: AMORPHOUS SEDIMENT,UR MOD AMOR PHOSPHATE /LPF
[2019-06-08 22:30] LABS: BASOPHILS % (AUTO) 0 % (0-10); EOSINOPHILS # (AUTO) 0.1 10^3/uL (0.0-0.3); EOSINOPHILS % (AUTO) 0 % (0-10); HEMATOCRIT 39 % (35-52); HEMOGLOBIN 13.1 G/DL (11.5-16.0); LYMPHOCYTES # (AUTO) 2.1 X 10^3 (1.0-4.0); LYMPHOCYTES % (AUTO) 11 % (12-44); MEAN CORPUSCULAR HEMOGLOBIN 28 PG (25-34); MEAN CORPUSCULAR HGB CONC 34 G/DL (32-36); MEAN CORPUSCULAR VOLUME 83 FL (80-99); MEAN PLATELET VOLUME 10.8 FL (7.4-10.4); MONOCYTES # (AUTO) 1.3 X 10^3 (0.0-1.0); MONOCYTES % (AUTO) 7 % (0-12); NEUTROPHILS # (AUTO) 15.1 X 10^3 (1.8-7.8); NEUTROPHILS % (AUTO) 81 % (42-75); PLATELET COUNT 261 10^3/uL (130-400); RED CELL DISTRIBUTION WIDTH 13.5 % (10.0-14.5); WHITE BLOOD COUNT 18.5 10^3/uL (4.3-11.0)
[2019-06-08] MEDS ORDERED: fentaNYL 2 mcg/ml BUPIVA 0.125 100 ML ONE (23:32)
[2019-06-09] VITALS (61 sets, daily range): BP systolic 114–143; BP diastolic 56–102
[2019-06-09] MEDS ORDERED: BUPIVACAINE 0.25% 30 ML (SENSORCAINE) VIAL ONE (00:46)
[2019-06-09] MEDS ORDERED: fentaNYL INJECTION 100 MCG/2 ML AMP ONE (00:46)
[2019-06-09] MEDS: EPIDURAL (fentaNYL 2 MCG/ML BUPIVA 0.125%)100 ML BAG EPI PRN ×2 (01:13→09:45)
[2019-06-09] MEDS ORDERED: LACTATED RINGERS 1,000 ML IV SCH (01:26)
[2019-06-09] MEDS ORDERED: NALOXONE 0.4 MG/ML 1 ML (NARCAN) VIAL IV PRN ×2 (01:30)
[2019-06-09] MEDS ORDERED: METOCLOPRAMIDE INJ 10 MG/2 ML (REGLAN) IV PRN (01:30)
[2019-06-09] MEDS ORDERED: diphenhydrAMINE 50 MG/ML INJ (BENADRYL) IV PRN (01:30)
[2019-06-09] MEDS ORDERED: ONDANSETRON 4 MG/2 ML (SDV) Z0FRAN IV PRN (01:30)
[2019-06-09] MEDS: D5 LR IV SOLUTION 1,000 ML IV SCH ×2 (03:59→22:14)
--- NOTE | 2019-06-09 07:15 | NUR ---
Report given to Alen Deleon RN
[2019-06-09] MEDS ORDERED: OXYTOCIN PRE-MIX DRIP 500 ML IV ONE ×2 (07:22→11:34)
[2019-06-09] MEDS ORDERED: LIDOCAINE/EPI 2% 1:200,00 (XYLOCAINE) 10 ML VIAL ONE (07:23)
--- NOTE | 2019-06-09 08:15 | NUR ---
called. update given. no new orders received.
[2019-06-09] MEDS ORDERED: OXYTOCIN PRE-MIX DRIP 500 ML IV SCH (11:59)
[2019-06-09] MEDS ORDERED: TETANUS,DIPTH,PERTUSS P/F (BOOSTRIX) 0.5 ML VIAL IM ONE (12:00)
[2019-06-09] MEDS ORDERED: WITCH HAZEL(TUCKS) 40 EA JAR TOP PRN (12:00)
[2019-06-09] MEDS ORDERED: BENZOCAINE/MENTHOL (DERMOPLAST) 60 ML CAN TP PRN (12:00)
[2019-06-09] MEDS ORDERED: MEASLES,MUMPS,RUBELLA 1 EA INJ SQ ONE (12:00)
--- NOTE | 2019-06-09 12:01 | OB Labor & Delivery Record ---
Vag Delivery Note Vag Delivery Note Date of Delivery: 06/09/19 Preoperative Diagnosis: Robyn Castle is a 23 /Para 1 /0 ,Gestational Age 39 4/7 weeks in labor. Postoperative Diagnosis: Same Surgeon: KATRIN SANTIAGO Anesthesia: epidural Delivery Type: vaginal Findings: Viable female , apgars 8/9, weight pending Lacerations: right vaginal laceration with extension Intact placenta with 3 vessel cord. No nuchal cord, body cord or shoulder dystocia Estimated Blood Loss: 200 ml Complications: None Condition: Stable Description of Procedure: The patient is a 23 year old female who presented in labor. she was admitted and managed by Dr. Waletrs hotel operation manager until she was in active labor and then I was called. . She was admitted and informed consent was obtained. Her labor course was remarkable for ROM. She progressed to complete dilatation and began to push. She was then set up for delivery. The infant's head was delivered atraumatically in the OA position. The shoulders and remainder of the infant's body were then delivered without difficulty. Upon delivery, the head was held below the level of the perineum and the mouth and nares were bulb suctioned. The cord was doubly clamped and cut and the was handed off to the pediatric staff. An intact placenta with 3-vessel cord delivered via Claudy and there was found to be minimal bleeding.~ Vigorous fundal massage was performed and the fundus was found to be firm. IV oxytocin was given. Examination of the vagina and perineum revealed a vaginal laceration repaired in the usual fashion with 3-0 vicryl suture. Following the repair, sponge, instrument and needle counts were correct. Mom and baby were both in stable condition in the labor suite. Vitals - Labs Vital Signs - I&O Vital Signs Date Time Temp Pulse Resp B/P (MAP) Pulse Ox O2 Delivery O2 Flow Rate FiO2 06/09/19 09:30 118 18 132/77 (95) 99 Room Air 06/09/19 09:15 100 18 126/73 (90) 97 Room Air 06/09/19 09:00 101 18 131/81 (98) 97 Room Air 06/09/19 08:45 112 18 135/84 (101) 99 Room Air 06/09/19 08:30 107 18 131/81 (98) 99 Room Air 06/09/19 08:15 110 18 125/79 (94) 99 Room Air 06/09/19 08:00 106 18 133/78 (96) 98 Room Air 06/09/19 07:45 114 18 129/66 (87) 99 Room Air 06/09/19 07:30 118 18 126/68 (87) 97 Room Air 06/09/19 07:15 36.7 108 18 128/62 (84) 97 Room Air 06/09/19 07:00 105 18 96 Room Air 06/09/19 06:45 123 18 123/58 (79) 97 Room Air 06/09/19 06:30 122 18 128/63 (84) 97 Room Air 06/09/19 06:15 119 18 130/64 (86) 98 Room Air 06/09/19 06:00 123 18 127/64 (85) 97 Room Air 06/09/19 05:45 131 18 128/64 (85) 97 Room Air 06/09/19 05:30 142 18 129/82 (98) 98 Room Air 06/09/19 05:15 123 18 131/70 (90) 98 Room Air 06/09/19 05:00 139 18 125/67 (86) 97 Room Air 06/09/19 04:45 127 18 126/71 (89) 97 Room Air 06/09/19 04:30 110 18 124/72 (89) 97 Room Air 06/09/19 04:15 131 18 129/77 (94) 98 Room Air 06/09/19 04:00 36.6 115 18 125/73 (90) 99 Room Air 06/09/19 03:45 111 18 130/76 (94) 99 Room Air 06/09/19 03:30 103 18 125/77 (93) 99 Room Air 06/09/19 03:15 103 18 126/75 (92) 99 Room Air 06/09/19 03:00 103 18 125/77 (93) 99 Room Air 06/09/19 02:45 96 18 126/71 (89) 100 Room Air 06/09/19 02:30 97 18 131/72 (91) 100 Room Air 06/09/19 02:15 92 18 125/69 (87) 100 Room Air 06/09/19 02:00 90 18 125/65 (85) 100 Room Air 06/09/19 01:55 83 18 120/67 (84) 100 Room Air 06/09/19 01:50 93 18 125/65 (85) 100 Room Air 06/09/19 01:45 85 18 129/64 (85) 99 Room Air 06/09/19 01:40 102 18 132/67 (88) 100 Room Air 06/09/19 01:35 110 18 124/68 (86) 100 Room Air 06/09/19 01:30 115 18 99 Room Air 06/09/19 01:27 103 18 121/63 (82) 99 Room Air 06/09/19 01:24 114 18 119/62 (81) 99 Room Air 06/09/19 01:21 112 18 120/57 (78) 98 Room Air 06/09/19 01:18 126 18 114/56 (75) 97 Room Air 06/09/19 01:13 114 18 117/59 (78) 100 Room Air 06/09/19 01:10 92 18 119/64 (82) 100 Room Air 06/09/19 01:04 92 18 119/64 (82) 100 Room Air 06/09/19 01:03 100 18 121/61 (81) 99 Room Air 06/09/19 01:02 100 18 129/63 (85) 99 Room Air 06/09/19 00:57 97 18 142/89 (106) 100 Room Air 06/09/19 00:53 82 18 135/87 (103) 06/09/19 00:00 36.8 06/08/19 20:37 36.7 80 18 99 Room Air Labs Laboratory Tests 06/08/19 20:25: Urine Color YELLOW, Urine Clarity SL CLOUDY, Urine pH 7.5, Urine Specific [place] 1.015L, Urine Protein NEGATIVE, Urine Glucose (UA) NEGATIVE, Urine Ketones NEGATIVE, Urine Nitrite NEGATIVE, Urine Bilirubin NEGATIVE, Urine Urobilinogen 0.2, Urine Leukocyte Esterase 1+H, Urine RBC (Auto) NEGATIVE, Urine RBC NONE, Urine WBC 2-5, Urine Squamous Epithelial Cells 2-5, Urine Crystals PRESENTH, Urine Amorphous Sediment MOD DANYEL PHOSPHATEH, Urine Bacteria TRACE, Urine Casts NONE, Urine Mucus NEGATIVE, Urine Culture Indicated NO 06/08/19 22:20: White Blood Count 18.5H, Red Blood Count 4.68, Hemoglobin 13.1, Hematocrit 39, Mean Corpuscular Volume 83, Mean Corpuscular Hemoglobin 28, Mean Corpuscular Hemoglobin Concent 34, Red Cell Distribution Width 13.5, Platelet Count 261, Mean Platelet Volume 10.8H, Neutrophils (%) (Auto) 81H, Lymphocytes (%) (Auto) 11L, Monocytes (%) (Auto) 7, Eosinophils (%) (Auto) 0, Basophils (%) (Auto) 0, Neutrophils # (Auto) 15.1H, Lymphocytes # (Auto) 2.1, Monocytes # (Auto) 1.3H, Eosinophils # (Auto) 0.1, Basophils # (Auto) 0.0 KATRIN SANTIAGO DO Jun 09, 2019 12:01
--- NOTE | 2019-06-09 12:02 | History & Physical-OB ---
OB - Chief Complaint & HPI Date/Time Date of Admission: Date of Admission: Jun 08, 2019 at 21:37 Date seen by a Provider: Jun 09, 2019 Time Seen by a Provider: 08:30 Chief Complaint/History OB-Reason for Admission/Chief: Onset of Labor (Admitted by Dr. Walters in labor. once she was active, they called me for management.) Hx : 1 Expected Date of Delivery: Jun 13, 2019 Gestational Age in Weeks: 39 Gestational Age in Days: 2 Admission Nurse Assessment Rev: Yes History of Labs s chart Other Uncomplicated Allergies and Home Medications Allergies Coded Allergies: No Known Drug Allergies (Unverified , 05/05/19) Home Medications Acetaminophen 500 Mg Tablet, 1,000 MG PO Q8HR Prescribed by: KATRIN SANTIAGO on 06/10/19 0836 Ibuprofen 600 Mg Tablet, 600 MG PO Q6HR Prescribed by: KATRIN SANTIAGO on 06/10/19 0836 Vit/Iron Fumarate/FA 1 Each Tablet, 1 EACH PO DAILY, (Reported) Patient Home Medication List Home Medication List Reviewed: No OB - History Hx of Present Care: Yes Ultrasounds: Normal mid trimester US Obstetrical Complications: None Obstetrical History Hx : 1 Delivery History Adverse Rxn to Tranfusion: No Patient Past Medical History NC Social History/Family History Recent Infectious Disease Expo: No Alcohol Use: Denies Use Recreational Drug Use: No 2nd Hand Smoke Exposure: No Immunizations Date of Influenza Vaccine: Dec 26, 2018 OB - Admission Exam Physical Exam Vitals: Vital Signs 06/09/19 06/09/19 07:15 09:30 Temp 36.7 Pulse 118 Resp 18 B/P (MAP) 132/77 (95) Pulse Ox 99 O2 Delivery Room Air HEENT: NCAT Heart: Rhythm Normal Lungs: Clear Extremities: Edema (+) Heart Rate: 140's Accelerations: Accelerations Present Decelerations: No Decelerations Short Term Variability: Present Retirement Variability: Average (6-25) Labs Laboratory Tests Test 06/08/19 20:25 06/08/19 22:20 Range/Units Urine Color YELLOW Urine Clarity SL CLOUDY Urine pH 7.5 5-9 Urine Specific [place] 1.015 L 1.016-1.022 Urine Protein NEGATIVE NEGATIVE Urine Glucose (UA) NEGATIVE NEGATIVE Urine Ketones NEGATIVE NEGATIVE Urine Nitrite NEGATIVE NEGATIVE Urine Bilirubin NEGATIVE NEGATIVE Urine Urobilinogen 0.2 < = 1.0 MG/DL Urine Leukocyte Esterase 1+ H NEGATIVE Urine RBC (Auto) NEGATIVE NEGATIVE Urine RBC NONE /HPF Urine WBC 2-5 /HPF Urine Squamous Epithelial Cells 2-5 /HPF Urine Crystals PRESENT H /LPF Urine Amorphous Sediment MOD DANYEL PHOSPHATE H /LPF Urine Bacteria TRACE /HPF Urine Casts NONE /LPF Urine Mucus NEGATIVE /LPF Urine Culture Indicated NO White Blood Count 18.5 H 4.3-11.0 10^3/uL Red Blood Count 4.68 4.35-5.85 10^6/uL Hemoglobin 13.1 11.5-16.0 G/DL Hematocrit 39 35-52 % Mean Corpuscular Volume 83 80-99 FL Mean Corpuscular Hemoglobin 28 25-34 PG Mean Corpuscular Hemoglobin Concent 34 32-36 G/DL Red Cell Distribution Width 13.5 10.0-14.5 % Platelet Count 261 130-400 10^3/uL Mean Platelet Volume 10.8 H 7.4-10.4 FL Neutrophils (%) (Auto) 81 H 42-75 % Lymphocytes (%) (Auto) 11 L 12-44 % Monocytes (%) (Auto) 7 0-12 % Eosinophils (%) (Auto) 0 0-10 % Basophils (%) (Auto) 0 0-10 % Neutrophils # (Auto) 15.1 H 1.8-7.8 X 10^3 Lymphocytes # (Auto) 2.1 1.0-4.0 X 10^3 Monocytes # (Auto) 1.3 H 0.0-1.0 X 10^3 Eosinophils # (Auto) 0.1 0.0-0.3 10^3/uL Basophils # (Auto) 0.0 0.0-0.1 10^3/uL OB - Assessment/Plan/Diagnosis Assessment Assessment: active labor Admission Dx Labor Admission Status: Inpatient Order (span 2 midnights) (labor) Reason for Inpatient Admission: labor Plan Plan: Expectant Management (Anticipate ) KATRIN SANTIAGO DO Jun 09, 2019 12:02
--- NOTE | 2019-06-09 12:24 | NUR ---
pitocin infusion completed. IV converted to HL. 1225- FFu/1. lt rubra noted.
--- NOTE | 2019-06-09 13:00 | NUR ---
FFu/1. lt-moderate rubra noted. no clots expressed. eating regular diet.
[2019-06-09] MEDS: IBUPROFEN 600 MG (MOTRIN) TAB PO SCH ×2 (13:38→20:48)
[2019-06-09] MEDS: ACETAMINOPHEN 500 MG TAB (TYLENOL) PO SCH ×2 (13:39→22:34)
--- NOTE | 2019-06-09 14:45 | NUR ---
assist up to BR x1. tolerated well. +void. augustina-care instructions given, returned demonstration. v-pad and mesh panties in place.
--- NOTE | 2019-06-09 14:50 | NUR ---
pt transferred to room 311 via w/c with this RN, and s/o @ side. pt stable with no sx's of distress noted. call light within reach within reach.
--- NOTE | 2019-06-09 17:30 | NUR ---
infant remains out with parents. no c/o's voiced @ time.
--- NOTE | 2019-06-09 19:05 | NUR ---
report given to ROSSANA Watt. Addendum: 06/09/19 at 1941 by ANGEL BRENNER RN 1909- report given to ROSSANA Mills.
[2019-06-09] MEDS: DOCUSATE SODIUM 100 MG (COLACE) CAP PO SCH (20:48)
[2019-06-09] MEDS: CATHETER FLUSH 10 ML SYR IV SCH ×2 (22:00→22:35)
[2019-06-10] VITALS: BP 126/72
[2019-06-10 04:00] VITALS: BP 106/72
[2019-06-10] MEDS: IBUPROFEN 600 MG (MOTRIN) TAB PO SCH ×3 (04:50→19:55)
[2019-06-10] MEDS: D5 LR IV SOLUTION 1,000 ML IV SCH (05:07)
[2019-06-10 05:30] LABS: BASOPHILS % (AUTO) 0 % (0-10); EOSINOPHILS # (AUTO) 0.1 10^3/uL (0.0-0.3); EOSINOPHILS % (AUTO) 0 % (0-10); HEMATOCRIT 34 % (35-52); HEMOGLOBIN 11.3 G/DL (11.5-16.0); LYMPHOCYTES # (AUTO) 2.6 X 10^3 (1.0-4.0); LYMPHOCYTES % (AUTO) 13 % (12-44); MEAN CORPUSCULAR HEMOGLOBIN 28 PG (25-34); MEAN CORPUSCULAR HGB CONC 33 G/DL (32-36); MEAN CORPUSCULAR VOLUME 84 FL (80-99); MEAN PLATELET VOLUME 10.8 FL (7.4-10.4); MONOCYTES # (AUTO) 1.5 X 10^3 (0.0-1.0); MONOCYTES % (AUTO) 8 % (0-12); NEUTROPHILS # (AUTO) 15.5 X 10^3 (1.8-7.8); NEUTROPHILS % (AUTO) 79 % (42-75); PLATELET COUNT 235 10^3/uL (130-400); RED CELL DISTRIBUTION WIDTH 13.8 % (10.0-14.5); WHITE BLOOD COUNT 19.7 10^3/uL (4.3-11.0)
[2019-06-10] MEDS: PRENATAL VITAMIN 1 EA TAB PO SCH (06:16)
[2019-06-10] MEDS: ACETAMINOPHEN 500 MG TAB (TYLENOL) PO SCH ×3 (06:16→21:57)
[2019-06-10] MEDS: CATHETER FLUSH 10 ML SYR IV SCH (06:17)
--- NOTE | 2019-06-10 07:45 | NUR ---
pt sleeping with eyes closed. no sx's of distress noted.
--- NOTE | 2019-06-10 08:29 | Postpartum Progress Note ---
Note Note Day # 1 s/p Subjective: Patient is without complaints. Ambulating, voiding. Tolerating a regular diet without nausea or vomiting. Normal lochia. Pain is well controlled with oral pain medications. breast feeding. Objective: Laboratory Tests Test 06/10/19 04:58 Range/Units White Blood Count 19.7 H 4.3-11.0 10^3/uL Red Blood Count 4.08 L 4.35-5.85 10^6/uL Hemoglobin 11.3 L 11.5-16.0 G/DL Hematocrit 34 L 35-52 % Mean Corpuscular Volume 84 80-99 FL Mean Corpuscular Hemoglobin 28 25-34 PG Mean Corpuscular Hemoglobin Concent 33 32-36 G/DL Red Cell Distribution Width 13.8 10.0-14.5 % Platelet Count 235 130-400 10^3/uL Mean Platelet Volume 10.8 H 7.4-10.4 FL Neutrophils (%) (Auto) 79 H 42-75 % Lymphocytes (%) (Auto) 13 12-44 % Monocytes (%) (Auto) 8 0-12 % Eosinophils (%) (Auto) 0 0-10 % Basophils (%) (Auto) 0 0-10 % Neutrophils # (Auto) 15.5 H 1.8-7.8 X 10^3 Lymphocytes # (Auto) 2.6 1.0-4.0 X 10^3 Monocytes # (Auto) 1.5 H 0.0-1.0 X 10^3 Eosinophils # (Auto) 0.1 0.0-0.3 10^3/uL Basophils # (Auto) 0.0 0.0-0.1 10^3/uL Vital Sign - Last 24 Hours 06/09/19 06/09/19 06/09/19 06/09/19 08:30 08:45 09:00 09:15 Pulse 107 112 101 100 Resp 18 18 18 18 B/P (MAP) 131/81 (98) 135/84 (101) 131/81 (98) 126/73 (90) Pulse Ox 99 99 97 97 O2 Delivery Room Air Room Air Room Air Room Air 06/09/19 06/09/19 06/09/19 06/09/19 09:30 09:45 10:00 10:15 Temp 36.3 Pulse 118 113 112 102 Resp 18 18 18 18 B/P (MAP) 132/77 (95) 131/80 (97) 125/75 (92) 124/77 (93) Pulse Ox 99 98 95 95 O2 Delivery Room Air Room Air Room Air Room Air 06/09/19 06/09/19 06/09/19 06/09/19 10:30 10:45 11:00 11:45 Temp 37.1 Pulse 106 117 118 116 Resp 18 18 18 18 B/P (MAP) 130/78 (95) 135/83 (100) 129/85 (100) 133/102 (112) Pulse Ox 97 97 O2 Delivery Room Air Room Air Room Air Room Air 06/09/19 06/09/19 06/09/19 06/09/19 12:00 12:15 12:30 12:45 Pulse 109 102 109 99 Resp 18 18 18 18 B/P (MAP) 129/67 (87) 143/67 (92) 115/58 (77) 136/59 (84) O2 Delivery Room Air Room Air Room Air Room Air 06/09/19 06/09/19 06/09/19 06/09/19 13:00 13:15 13:30 20:00 Temp 37.2 36.4 Pulse 94 102 96 93 Resp 18 18 18 20 B/P (MAP) 139/63 (88) 138/69 (92) 136/65 (88) 114/67 (83) Pulse Ox 99 O2 Delivery Room Air Room Air Room Air Room Air 06/10/19 06/10/19 00:00 04:00 Temp 36.2 36.3 Pulse 90 88 Resp 20 20 B/P (MAP) 126/72 (90) 106/72 (83) Pulse Ox 99 97 O2 Delivery Room Air Room Air Physical Exam: General - Alert and oriented, no apparent distress Abdomen - Soft, appropriately tender to palpation, non-distended, fundus firm at umbilicus Extremities - no edema, negative Janell's bilaterally Assessment: 1. post- day # 1, status post spontaneous vaginal delivery. Recovering well, hemodynamically stable Plan: Routine care. Encourage breast feeding. Encourage ambulation. Ferrous sulfate supplementation. Plan for discharge today Vitals - Labs Vital Signs - I&O Vital Signs Date Time Temp Pulse Resp B/P (MAP) Pulse Ox O2 Delivery O2 Flow Rate FiO2 06/10/19 04:00 36.3 88 20 106/72 (83) 97 Room Air 06/10/19 00:00 36.2 90 20 126/72 (90) 99 Room Air 06/09/19 20:00 36.4 93 20 114/67 (83) 99 Room Air 06/09/19 13:30 96 18 136/65 (88) Room Air 06/09/19 13:15 102 18 138/69 (92) Room Air 06/09/19 13:00 37.2 94 18 139/63 (88) Room Air 06/09/19 12:45 99 18 136/59 (84) Room Air 06/09/19 12:30 109 18 115/58 (77) Room Air 06/09/19 12:15 102 18 143/67 (92) Room Air 06/09/19 12:00 109 18 129/67 (87) Room Air 06/09/19 11:45 37.1 116 18 133/102 (112) Room Air 06/09/19 11:00 118 18 129/85 (100) Room Air 06/09/19 10:45 117 18 135/83 (100) 97 Room Air 06/09/19 10:30 106 18 130/78 (95) 97 Room Air 06/09/19 10:15 102 18 124/77 (93) 95 Room Air 06/09/19 10:00 112 18 125/75 (92) 95 Room Air 06/09/19 09:45 36.3 113 18 131/80 (97) 98 Room Air 06/09/19 09:30 118 18 132/77 (95) 99 Room Air 06/09/19 09:15 100 18 126/73 (90) 97 Room Air 06/09/19 09:00 101 18 131/81 (98) 97 Room Air 06/09/19 08:45 112 18 135/84 (101) 99 Room Air 06/09/19 08:30 107 18 131/81 (98) 99 Room Air Labs Laboratory Tests 06/10/19 04:58: White Blood Count 19.7H, Red Blood Count 4.08L, Hemoglobin 11.3L, Hematocrit 34L , Mean Corpuscular Volume 84, Mean Corpuscular Hemoglobin 28, Mean Corpuscular Hemoglobin Concent 33, Red Cell Distribution Width 13.8, Platelet Count 235, Mean Platelet Volume 10.8H, Neutrophils (%) (Auto) 79H, Lymphocytes (%) (Auto) 13, Monocytes (%) (Auto) 8, Eosinophils (%) (Auto) 0, Basophils (%) (Auto) 0, Neutrophils # (Auto) 15.5H, Lymphocytes # (Auto) 2.6, Monocytes # (Auto) 1.5H, Eosinophils # (Auto) 0.1, Basophils # (Auto) 0.0 KATRIN SANTIAGO DO Jun 10, 2019 08:29
[2019-06-10] MEDS ORDERED: ACET-93 PO (08:36)
[2019-06-10] MEDS ORDERED: IBUP-844 PO (08:36)
--- NOTE | 2019-06-10 08:37 | Discharge Inst-Women's Service ---
Discharge Inst-Women's Serv Depart Medication/Instructions New, Converted or Re-Newed RX: Transmitted to Pharmacy Final Diagnosis Labor Vaginal delivery Epidural Problems Reviewed?: Yes Consults/Follow Up Additional Follow Up: Yes (2 weeks for pp exam (with leeanna or telephone visit); 6 week pp exam with Kobi) Activity Activity: Activity as Tolerated Driving Instructions: You May Drive NO SMOKING: NO SMOKING Nothing Inside Vagina: No Douching, No [place], No Tampons Diet Discharge Diet: No Restrictions Symptoms to Report to : Swelling Increased, Bleeding Excessive, Pain Increased, Fever Over 101 Degrees F, Vaginal Bleeding Increase, Cramps in Feet or Legs, Vaginal Discharge Foul For Any Problems or Questions: Contact Your Physician KATRIN SANTIAGO DO Jun 10, 2019 08:37
--- NOTE | 2019-06-10 08:58 | NUR ---
here. pt cont sleeping with unlabored respirations.
[2019-06-10] MEDS: DOCUSATE SODIUM 100 MG (COLACE) CAP PO SCH ×2 (09:00→21:57)
[2019-06-10] MEDS: FERROUS SULF 325 MG (IRON) TAB PO SCH (09:00)
[2019-06-10 09:21] VITALS: BP 96/69
--- NOTE | 2019-06-10 09:21 | NUR ---
initial shift assessment completed, see interventions for further.
--- NOTE | 2019-06-10 10:30 | NUR ---
up to shower.
--- NOTE | 2019-06-10 10:57 | Anesthesia-Regional Post-Op ---
Regional Patient Condition Mental Status: Alert, Oriented x3 Circulation: Same as Pre-Op Headache: Absent Sensation: Full Recovery Motor Block: Absent Post Op Complications Complications None Follow Up Care/Instructions Patient Instructions None needed. Anesthesia/Patient Condition Patient is doing well, no complaints, stable vital signs, no apparent adverse anesthesia problems. No complications reported per nursing. ASHLEIGH REYES CRNA Jun 10, 2019 10:57
[2019-06-10 17:25] VITALS: BP 108/74
[2019-06-10 23:17] VITALS: BP 104/76
[2019-06-11] MEDS: IBUPROFEN 600 MG (MOTRIN) TAB PO SCH ×2 (02:35→08:12)
[2019-06-11 06:00] VITALS: BP 108/58
[2019-06-11] MEDS: PRENATAL VITAMIN 1 EA TAB PO SCH (06:01)
[2019-06-11] MEDS: ACETAMINOPHEN 500 MG TAB (TYLENOL) PO SCH (06:01)
[2019-06-11] MEDS: FERROUS SULF 325 MG (IRON) TAB PO SCH (08:12)
[2019-06-11] MEDS: DOCUSATE SODIUM 100 MG (COLACE) CAP PO SCH (08:13)
--- NOTE | 2019-06-11 08:47 | Postpartum Progress Note ---
Note Note Day # 2 s/p ; DC held based on baby indications. Will DC home today. Subjective: Patient is without complaints. Ambulating, voiding. Tolerating a regular diet without nausea or vomiting. Normal lochia. Pain is well controlled with oral pain medications. Objective: 06/10/19 06/11/19 23:17 06:00 Temp 36.6 36.0 Pulse 73 72 Resp 16 18 B/P (MAP) 104/76 (85) 108/58 (75) Pulse Ox 96 97 O2 Delivery Room Air Room Air Physical Exam: General - Alert and oriented, no apparent distress Abdomen - Soft, appropriately tender to palpation, non-distended, fundus firm at umbilicus Extremities - no edema, negative Janell's bilaterally Assessment: 1. post- day # 2, status post spontaneous vaginal delivery. Recovering well, hemodynamically stable Plan: Routine care. Encourage breast feeding. Encourage ambulation. Ferrous sulfate supplementation. Plan for discharge today Vitals - Labs Vital Signs - I&O Vital Signs Date Time Temp Pulse Resp B/P (MAP) Pulse Ox O2 Delivery O2 Flow Rate FiO2 06/11/19 06:00 36.0 72 18 108/58 (75) 97 Room Air 06/10/19 23:17 36.6 73 16 104/76 (85) 96 Room Air 06/10/19 17:25 36.2 89 18 108/74 (85) 99 Room Air 06/10/19 09:21 36.2 84 18 96/69 (78) 97 Room Air KATRIN SANTIAGO DO Jun 11, 2019 08:47
== END 2019-06-11 10:30 | disposition home or self-care (01) | DRG 807 ==
LOC: LDRP 20:23 → WSo 20:23 → LDRP 21:37
PROVIDERS: ADMIT Obstetrics & Gynecology; ATTEND Obstetrics & Gynecology
PROC: 10E0XZZ Delivery of Products of Conception, External Approach (ICD-10-PCS; principal; 2019-06-09)
PROC: 0HQ9XZZ Repair Perineum Skin, External Approach (ICD-10-PCS; 2019-06-09)
DX: O70.0 First degree perineal laceration during delivery (principal); Z37.0 Single live birth; Z3A.39 39 weeks gestation of pregnancy
CPT/HCPCS: 36415; 81000; 85025; 86850; 86900; 86901; 99212

== ENCOUNTER → 2022-06-28 | Outpatient (CLI) | payer BC, MEDICAID ==
[~2022-06-28] MED LIST changes: +ACET-93 PO; +IBUP-844 PO
--- NOTE | 2022-06-28 16:52 | Diagnostic Imaging Report ---
INDICATION: anatomy survey TECHNIQUE: Multiple real-time grayscale images were obtained over the gravid uterus. COMPARISON: None Findings: there is a single live intrauterine in the transverse position. The placenta is posterior in location, and there is no previa. The CLYDE measures <> cm. Cervix measures approximately 3.5. anatomy survey was performed and the following structures are visualized and normal: Cisterna magna, cerebellum, cerebral ventricles, lips/nose, stomach, four-chamber heart, spine, urinary bladder, three-vessel cord, kidneys, right ventricular outflow tract, left ventricular outflow tract, umbilical cord insertion. Due to advanced gestational age, the maternal adnexa are suboptimally evaluated. Biometrical measurements are as follows: Biparietal 5.02 cm, age 21 weeks 2 days. Head circumference 19.85 cm, age 22 weeks 1 days. Abdominal circumference 16.87 cm, age 22 weeks 0 days. Femur length 3.63 cm, age 21 weeks 4 days. Sonographic estimate age: 21 weeks 6 days. Sonographic estimated date of delivery: 11/02/2022. Estimated Weight: 446 gm (+/- 65 gm). LMP percentile: 8%. heart rate: 142 beats per minute. number: 1 of 1. IMPRESSION: Single live intrauterine has normal anatomy survey. Dictated by: Dictated on workstation # [id number]
== END ==
LOC: RAD 14:47
PROVIDERS: ATTEND Obstetrics & Gynecology
DX: Z36.9 Encounter for antenatal screening, unspecified (principal); Z3A.21 21 weeks gestation of pregnancy
CPT/HCPCS: 76805

== ENCOUNTER → 2022-08-07 | Outpatient (CLI) | payer MEDICAID | LOC: LABNPT 12:41 | PROVIDERS: ATTEND Nurse Practitioner Women's Health | DX: O13.9 Gestational [pregnancy-induced] hypertension without significant proteinuria, unspecified trimester (principal); Z3A.00 Weeks of gestation of pregnancy not specified | CPT/HCPCS: 82570; 84156 ==

== ENCOUNTER 2022-10-15 12:28 | Inpatient (IN) | payer BC, MEDICAID ==
[~2022-10-15] VITALS: Ht 172.7 cm; Wt 122.2 kg
[2022-10-15] VITALS (42 sets, daily range): BP systolic 114–143; BP diastolic 65–83
--- NOTE | 2022-10-15 12:54 | History & Physical-OB ---
OB - Chief Complaint & HPI Date/Time Date of Admission: Date of Admission: Oct 15, 2022 at 12:28 Date seen by a Provider: Oct 15, 2022 Time Seen by a Provider: 12:30 Chief Complaint/History OB-Reason for Admission/Chief: Onset of Labor Hx : 2 Hx Para: 1 Expected Date of Delivery: Oct 27, 2022 Gestational Age in Weeks: 38 Gestational Age in Days: 2 Admission Nurse Assessment Rev: Yes History of Labs A pos Antibody neg RI RPR NR HBsAg NR HIV NR GC neg GBS neg Allergies and Home Medications Allergies Coded Allergies: No Known Drug Allergies (Unverified , 05/05/19) Patient Home Medication List Home Medication List Reviewed: Yes Acetaminophen (Acetaminophen) 500 Mg Tablet, 1,000 MG PO Q8HR Prescribed by: KATRIN SANTIAGO on 06/10/19 0836 Ibuprofen (Ibu) 600 Mg Tablet, 600 MG PO Q6HR Prescribed by: KATRIN SANTIAGO on 06/10/19 0836 Vit/Iron Fumarate/FA ( Tablet) 1 Each Tablet, 1 EACH PO DAILY, (Reported) Entered as Reported by: DANIEL OLSON on 05/05/19 1219 OB - History Hx of Present Care: Yes Ultrasounds: Normal mid trimester US Obstetrical Complications: None Medical Complications: None Delivery History Adverse Rxn to Tranfusion: No Patient Past Medical History NC Social History/Family History 2nd Hand Smoke Exposure: No OB - Admission Exam Physical Exam HEENT: NCAT Heart: Rhythm Normal Lungs: Clear Abdomen: Gravid Extremities: Normal Reflexes: Normal Cervical Dilatation: 4cm Effacement: 75% Station: -1 Membranes: Intact Heart Rate: 130's Accelerations: Accelerations Present Decelerations: No Decelerations Short Term Variability: Present Usp Variability: Average (6-25) Contractions on Admission: 6-10 Minutes Apart Intensity: Firm OB - Assessment/Plan/Diagnosis Assessment Assessment: active labor Admission Dx 26 yo @ 38.2 Active labor GBS neg Admission Status: Inpatient Order (span 2 midnights) Reason for Inpatient Admission: Active labor at 38 weeks Plan Plan: Expectant Management CARLOS WHEELER DO Oct 15, 2022 12:54
[2022-10-15] MEDS ORDERED: LACTATED RINGERS 1,000 ML 500 ML IV PRN (13:00)
[2022-10-15 13:09] LABS: BASOPHILS % (AUTO) 0 % (0-10); EOSINOPHILS # (AUTO) 0.1 10^3/uL (0.0-0.3); EOSINOPHILS % (AUTO) 1 % (0-10); HEMATOCRIT 38 % (35-52); HEMOGLOBIN 12.5 g/dL (11.5-16.0); LYMPHOCYTES # (AUTO) 1.9 10^3/uL (1.0-4.0); LYMPHOCYTES % (AUTO) 15 % (12-44); MEAN CORPUSCULAR HEMOGLOBIN 29 pg (25-34); MEAN CORPUSCULAR HGB CONC 33 g/dL (32-36); MEAN CORPUSCULAR VOLUME 86 fL (80-99); MEAN PLATELET VOLUME 10.8 fL (9.0-12.2); MONOCYTES # (AUTO) 0.7 10^3/uL (0.0-1.0); MONOCYTES % (AUTO) 5 % (0-12); NEUTROPHILS # (AUTO) 9.9 10^3/uL (1.8-7.8); NEUTROPHILS % (AUTO) 78 % (42-75); PLATELET COUNT 239 10^3/uL (130-400); WHITE BLOOD COUNT 12.7 10^3/uL (4.3-11.0)
[2022-10-15] MEDS: D5 LR 1,000 ML IV SOLN 1,000 ML IV SCH ×2 (13:19→21:20)
[2022-10-15] MEDS: CATHETER FLUSH 10 ML SYR IV SCH ×2 (14:00→22:19)
[2022-10-15] MEDS ORDERED: fentaNYL 2 mcg/ml BUPIVA 0.125 100 ML ONE (16:59)
[2022-10-15] MEDS: fentaNYL 2 mcg/ml BUPIVA 0.125 100 ML EPI SCH (18:04)
[2022-10-15] MEDS ORDERED: ONDANSETRON INJECTION 4 MG/2 ML (SDV) ONE (18:19)
[2022-10-15] MEDS: ONDANSETRON INJECTION 4 MG/2 ML (SDV) IV PRN (18:20)
[2022-10-15] MEDS ORDERED: NALOXONE 0.4 MG/ML 1 ML VIAL IV PRN ×2 (18:30)
[2022-10-15] MEDS ORDERED: LACTATED RINGERS 1,000 ML 1,000 ML IV SCH (18:30)
[2022-10-15] MEDS ORDERED: diphenhydrAMINE INJ 50 MG/ML VIAL IV PRN (18:30)
[2022-10-15] MEDS ORDERED: METOCLOPRAMIDE INJ 10 MG/2 ML IV PRN (18:30)
[2022-10-15] MEDS ORDERED: OXYTOCIN DRIP PRE-MIX 500 ML IV SCH (18:45)
[2022-10-15] MEDS ORDERED: OXYTOCIN DRIP PRE-MIX 500 ML IV ONE (19:00)
[2022-10-16] VITALS (32 sets, daily range): BP systolic 101–149; BP diastolic 54–82
[2022-10-16] MEDS: fentaNYL 2 mcg/ml BUPIVA 0.125 100 ML EPI SCH (01:04)
[2022-10-16] MEDS: ONDANSETRON INJECTION 4 MG/2 ML (SDV) IV PRN ×2 (03:05→07:02)
[2022-10-16] MEDS ORDERED: LIDOCAINE 2% w/EPI 1:200,000 20 ML VIAL ONE (04:47)
[2022-10-16] MEDS: OXYTOCIN DRIP PRE-MIX 500 ML IV SCH ×2 (05:06→05:34)
[2022-10-16] MEDS ORDERED: MEASLES, MUMPS, RUBELLA VACCINE (MMR) SQ ONE (05:30)
[2022-10-16] MEDS ORDERED: BENZOCAINE/MENTHOL (DERMOPLAST) 56 ML CAN TP PRN (05:30)
[2022-10-16] MEDS ORDERED: WITCH HAZEL(TUCKS) 40 EA JAR TOP PRN (05:30)
[2022-10-16] MEDS ORDERED: Tetanus/Diphtheria/Pertussis (Acell) ADULT Vaccine 0.5 ML IM ONE (05:30)
[2022-10-16] MEDS ORDERED: NALOXONE 0.4 MG/ML 1 ML VIAL IV PRN (05:30)
[2022-10-16] MEDS ORDERED: DIBUCAINE 1% OINTMENT 28 GM TUBE TOP PRN (05:30)
--- NOTE | 2022-10-16 05:30 | OB Labor & Delivery Record ---
L&D History Date of Service Date of Service: Oct 16, 2022 History Expected Date of Delivery: Oct 27, 2022 Gestational Age in Weeks: 38 Hx : 2 Hx Para: 1 Complications Events: Routine care Operative Indications (Cesarea: N/A-Vaginal Delivery Intrapartal Events: None L&D Stage1 Stage One Onset of Labor - Date: Oct 16, 2022 Monitors and Tracing Monitor Mode: External Heart Rate: 125 Station: -2 Vital Signs VS - Last 72 Hours, by Label 10/15/22 10/15/22 10/15/22 10/15/22 13:43 14:25 15:30 17:12 Temp 36.3 36.6 36.3 Pulse 100 81 83 83 Resp 20 18 18 18 B/P (MAP) 123/71 (88) 131/76 (94) 114/67 (83) Pulse Ox 98 97 98 O2 Delivery Room Air Room Air Room Air Room Air 10/15/22 10/15/22 10/15/22 10/15/22 17:58 18:02 18:05 18:09 Pulse 82 92 92 81 Resp 18 18 18 18 B/P (MAP) 132/75 (94) 143/73 (96) 143/73 (96) 139/70 (93) Pulse Ox 100 100 100 O2 Delivery Room Air Room Air Room Air 10/15/22 10/15/22 10/15/22 10/15/22 18:13 18:19 18:22 18:25 Pulse 84 93 86 84 Resp 18 18 18 18 B/P (MAP) 138/70 (92) 143/81 (101) 138/75 (96) 137/71 (93) Pulse Ox 99 100 100 O2 Delivery Room Air Room Air Room Air Room Air 10/15/22 10/15/22 10/15/22 10/15/22 18:28 18:30 18:35 18:40 Pulse 88 88 71 92 Resp 18 18 18 18 B/P (MAP) 138/83 (101) 136/68 (90) 132/67 (88) 129/70 (89) Pulse Ox 100 99 99 99 O2 Delivery Room Air Room Air Room Air Room Air 10/15/22 10/15/22 10/15/22 10/15/22 18:45 18:49 18:52 18:55 Pulse 76 88 81 85 Resp 18 18 18 B/P (MAP) 126/68 (87) 132/76 (94) 136/78 (97) 125/74 (91) Pulse Ox 100 100 100 O2 Delivery Room Air Room Air Room Air 10/15/22 10/15/22 10/15/22 10/15/22 18:58 19:01 19:06 19:21 Pulse 76 89 81 77 Resp 18 18 B/P (MAP) 130/67 (88) 128/71 (90) 125/74 (91) 131/71 (91) Pulse Ox 100 100 100 O2 Delivery Room Air Room Air Room Air 10/15/22 10/15/22 10/15/22 10/15/22 19:36 19:52 20:00 20:15 Temp 36.0 Pulse 79 79 84 85 Resp 18 18 18 18 B/P (MAP) 126/72 (90) 126/69 (88) 135/73 (93) 127/73 (91) Pulse Ox 100 99 99 99 O2 Delivery Room Air Room Air Room Air Room Air 10/15/22 10/15/22 10/15/22 10/15/22 20:30 20:45 21:00 21:15 Temp 36.0 Pulse 79 81 79 85 Resp 18 18 18 18 B/P (MAP) 128/70 (89) 120/66 (84) 126/73 (90) 129/75 (93) Pulse Ox 99 98 99 99 O2 Delivery Room Air Room Air Room Air Room Air 10/15/22 10/15/22 10/15/22 10/15/22 21:30 21:45 22:00 22:15 Pulse 80 76 76 84 Resp 18 18 18 18 B/P (MAP) 129/73 (91) 125/70 (88) 129/72 (91) 131/74 (93) Pulse Ox 99 98 99 99 O2 Delivery Room Air Room Air Room Air Room Air 10/15/22 10/15/22 10/15/22 10/15/22 22:30 22:45 23:00 23:15 Temp 36.8 Pulse 78 77 82 75 Resp 18 18 18 18 B/P (MAP) 123/69 (87) 128/65 (86) 130/76 (94) 135/82 (99) Pulse Ox 98 99 99 99 O2 Delivery Room Air Room Air Room Air Room Air 10/15/22 10/15/22 10/16/22 10/16/22 23:30 23:45 00:00 00:15 Pulse 81 69 76 74 Resp 18 18 18 18 B/P (MAP) 133/79 (97) 132/71 (91) 129/67 (87) 125/67 (86) Pulse Ox 99 99 98 98 O2 Delivery Room Air Room Air Room Air Room Air 10/16/22 10/16/22 10/16/22 10/16/22 00:30 00:45 01:00 01:15 Temp 36.1 Pulse 78 72 72 95 Resp 18 18 18 18 B/P (MAP) 124/66 (85) 124/66 (85) 124/65 (84) 134/72 (92) Pulse Ox 99 98 98 99 O2 Delivery Room Air Room Air Room Air Room Air 10/16/22 10/16/22 10/16/22 10/16/22 01:30 01:45 02:00 02:15 Pulse 78 80 93 87 Resp 18 18 18 18 B/P (MAP) 121/72 (88) 131/74 (93) 127/73 (91) 132/75 (94) Pulse Ox 98 98 98 97 O2 Delivery Room Air Room Air Room Air Room Air 10/16/22 10/16/22 10/16/22 10/16/22 02:30 02:45 03:00 03:15 Temp 36.4 Pulse 93 98 98 96 Resp 18 18 18 18 B/P (MAP) 132/75 (94) 142/81 (101) 138/81 (100) 146/80 (102) Pulse Ox 98 97 97 99 O2 Delivery Room Air Room Air Room Air Room Air 10/16/22 10/16/22 10/16/22 10/16/22 03:30 03:45 04:00 04:15 Pulse 97 91 85 90 Resp 18 18 18 18 B/P (MAP) 136/79 (98) 133/80 (97) 135/80 (98) 125/77 (93) Pulse Ox 98 98 98 97 O2 Delivery Room Air Room Air Room Air Room Air 10/16/22 04:30 Temp 37.0 Pulse 96 Resp 18 B/P (MAP) 129/82 (98) Pulse Ox 97 O2 Delivery Room Air Rupture of Membranes Spontaneous Ruture of Membrane: No Amniotic Membrane Rupture Time: 05:05 Induction/Anesthesia Epidural Cath Placement - Time: 1755 Progress/Notes Patient admitted in active labor, she progressed to 7 cm when she received an epidural. She progressed to complete and + 2 station with bulging membranes at which point I presented and performed arom prior to delivery L&D Stage2 Stage Two Stage II Date: Oct 16, 2022 Monitors and Tracing Monitor Mode: External Heart Rate: 125 Monitor Accelerations: Uniform Monitor Decelerations: None Correction Variability: Average (6-10) Short Term Variability: Present Position: Right Occiput Anterior Presentation: Vertex Cord Descript/Complications Cord Vessel Description: 3 Vessels Delivery Type Infant Delivery Method: Spontaneous Vaginal Anterior Shoulder: Right Episiotomy/Perineal Laceration Laceraction(s)/Extensions: No Condition of Delivery 1 minute Comment: 8 5 minute Comment: 9 Notes Live male infant weight pending Condition of Infant Condition of : Living Exam: No Observed Abnormalities Resuscitation Resuscitation: N/A - Spontaneous Resp L&D Stage3 Stage Three Stage III Date: Oct 16, 2022 Pictocin Pitocin Administration mu/min: 14 Pitocin ml/hr: 14 Pitocin Administration Comment: 0100 - Pitocin increased per protocol. Placenta Delivery Placenta Delivery: Spontaneous Delivery Summary Summary Estimated blood loss (mL): 250 Condition of Delivery Examined: Cervix Examined, Uterus Explored Post Hemorrhage: No Condition of Mother stable Condition of (s) stable XIOMARAJANNCARLOS DO Oct 16, 2022 05:30
[2022-10-16] MEDS: CATHETER FLUSH 10 ML SYR IV SCH (05:59)
[2022-10-16] MEDS ORDERED: CATHETER FLUSH 10 ML SYR IV SCH (06:00)
[2022-10-16] MEDS: IBUPROFEN 600 MG TABLET PO SCH ×3 (06:03→18:00)
[2022-10-16] MEDS: ACETAMINOPHEN 500 MG TABLET PO SCH ×3 (06:03→18:00)
[2022-10-16] MEDS: FERROUS SULFATE 325 MG (IRON) TABLET PO SCH (10:19)
[2022-10-16] MEDS: DOCUSATE SODIUM 100 MG CAPSULE PO SCH ×2 (10:19→21:57)
--- NOTE | 2022-10-16 14:25 | Anesthesia-Regional Post-Op ---
Regional Patient Condition Mental Status: Alert, Oriented x3 Circulation: Same as Pre-Op Headache: Absent Sensation: Decreased Motor Block: Absent Post Op Complications Complications None Follow Up Care/Instructions Patient Instructions None needed. Anesthesia/Patient Condition Patient is doing well, no complaints, stable vital signs. No complications reported per nursing. Patient reported slight numbness in her left upper thigh. She stated she remembered this residual numbness with her last . Will continue to monitor to make sure it resolves 100%. SWATI KRUGER [employer] Oct 16, 2022 14:25
[2022-10-17] MEDS: IBUPROFEN 600 MG TABLET PO SCH ×4 (00:24→18:25)
[2022-10-17] MEDS: ACETAMINOPHEN 500 MG TABLET PO SCH ×4 (00:24→18:26)
[2022-10-17 03:40] VITALS: BP 118/65
[2022-10-17 05:50] LABS: BASOPHILS % (AUTO) 0 % (0-10); EOSINOPHILS # (AUTO) 0.1 10^3/uL (0.0-0.3); EOSINOPHILS % (AUTO) 1 % (0-10); HEMATOCRIT 32 % (35-52); HEMOGLOBIN 10.6 g/dL (11.5-16.0); LYMPHOCYTES # (AUTO) 2.4 10^3/uL (1.0-4.0); LYMPHOCYTES % (AUTO) 17 % (12-44); MEAN CORPUSCULAR HEMOGLOBIN 29 pg (25-34); MEAN CORPUSCULAR HGB CONC 33 g/dL (32-36); MEAN CORPUSCULAR VOLUME 86 fL (80-99); MEAN PLATELET VOLUME 11.4 fL (9.0-12.2); MONOCYTES % (AUTO) 7 % (0-12); NEUTROPHILS # (AUTO) 10.6 10^3/uL (1.8-7.8); NEUTROPHILS % (AUTO) 74 % (42-75); PLATELET COUNT 150 10^3/uL (130-400); WHITE BLOOD COUNT 14.3 10^3/uL (4.3-11.0)
--- NOTE | 2022-10-17 07:18 | Postpartum Progress Note ---
RONDANICHOLAS 10/17/22 7:18am: Note Note Day # 2 Subjective: Patient is without complaints. Ambulating, voiding. Tolerating a regular diet without nausea or vomiting. Normal lochia. Pain is well controlled with oral pain medications. [] feeding. [] Objective: Physical Exam: General - Alert and oriented, no apparent distress Abdomen - Soft, appropriately tender to palpation, non-distended, fundus firm at umbilicus Extremities - no edema, negative Janell's bilaterally Assessment: status post- day # 2, post vaginal delivery. Recovering well, hemodynamically stable Plan: Routine care. Encourage breast feeding. Encourage ambulation. Ferrous sulfate supplementation. Plan for discharge today Vitals - Labs Vital Signs - I&O Vital Signs Date Time Temp Pulse Resp B/P (MAP) Pulse Ox O2 Delivery O2 Flow Rate FiO2 10/17/22 03:40 36.4 78 18 118/65 (82) 96 Room Air 10/16/22 21:57 35.9 87 18 101/54 (70) 98 Room Air 10/16/22 16:15 36.8 82 18 131/58 (82) Room Air 10/16/22 12:43 36.8 82 18 121/78 (92) 98 Room Air 10/16/22 10:20 36.0 84 18 121/70 (87) 98 Room Air Labs Laboratory Tests 10/17/22 05:25: White Blood Count 14.3H, Red Blood Count 3.72L, Hemoglobin 10.6L, Hematocrit 32L , Mean Corpuscular Volume 86, Mean Corpuscular Hemoglobin 29, Mean Corpuscular Hemoglobin Concent 33, Red Cell Distribution Width 12.7, Platelet Count 150, Mean Platelet Volume 11.4, Immature Granulocyte % (Auto) 1, Neutrophils (%) (Auto) 74, Lymphocytes (%) (Auto) 17, Monocytes (%) (Auto) 7, Eosinophils (%) (Auto) 1, Basophils (%) (Auto) 0, Neutrophils # (Auto) 10.6H, Lymphocytes # (Auto) 2.4, Monocytes # (Auto) 1.0, Eosinophils # (Auto) 0.1, Basophils # (Auto) 0.0, Immature Granulocyte # (Auto) 0.2H TARIQ WHEELER DO 10/17/22 10:15am: Note Note Acute blood loss anemia Verification and Attestation of Medical Student E/M Service A medical student performed and documented this service in my presence. I reviewed and verified all information documented by the medical student and made modifications to such information, when appropriate. I personally performed the physical exam and medical decision making. Tariq Wheeler, Oct 17, 2022,10:15 NICHOLAS BOND Oct 17, 2022 7:18 am TARIQ WHEELER DO Oct 17, 2022 10:15 am
[2022-10-17 07:37] VITALS: BP 118/63
[2022-10-17] MEDS: FERROUS SULFATE 325 MG (IRON) TABLET PO SCH (09:32)
[2022-10-17] MEDS: DOCUSATE SODIUM 100 MG CAPSULE PO SCH (09:33)
--- NOTE | 2022-10-17 10:17 | Discharge Inst-Women's Service ---
Discharge Inst-Women's Serv Depart Medication/Instructions New, Converted or Re-Newed RX: Transmitted to Pharmacy Final Diagnosis PPD 1 NVD Problems Reviewed?: Yes Consults/Follow Up Additional Follow Up: Yes Orders/Referrals Dr. Wheeler in 6 weeks Activity Activity: Activity as Tolerated Driving Instructions: No Driving for 1 Week NO SMOKING: NO SMOKING Nothing Inside Vagina: No Douching, No [place], No Tampons Diet Discharge Diet: No Restrictions Symptoms to Report to : Bleeding Excessive, Pain Increased, Fever Over 101 Degrees F, Vaginal Bleeding Increase, Questions/Concerns For Any Problems or Questions: Contact Your Physician CARLOS WHEELER DO Oct 17, 2022 10:17 am
[2022-10-17] MEDS ORDERED: IBUP-844 PO (10:18)
[2022-10-17] MEDS ORDERED: DOCU100C37 PO (10:18)
[2022-10-17] MEDS ORDERED: BENZ78AE5 TP (10:18)
[2022-10-17] MEDS ORDERED: ACET-93 PO (10:18)
[2022-10-17 12:00] VITALS: BP 128/67
[2022-10-17 18:39] VITALS: BP 128/67
== END 2022-10-17 18:40 | disposition home or self-care (01) | DRG 806 ==
LOC: LDRP 12:28 → WS 14:09 → LDRP 10-16 10:48
PROVIDERS: ADMIT Obstetrics & Gynecology; ATTEND Obstetrics & Gynecology
PROC: 10E0XZZ Delivery of Products of Conception, External Approach (ICD-10-PCS; principal; 2022-10-16)
PROC: 10907ZC Drainage of Amniotic Fluid, Therapeutic from Products of Conception, Via Natural or Artificial Opening (ICD-10-PCS; 2022-10-16)
DX: O99.334 Smoking (tobacco) complicating childbirth (principal); D62 Acute posthemorrhagic anemia; Z37.0 Single live birth; F17.210 Nicotine dependence, cigarettes, uncomplicated; O90.81 Anemia of the puerperium; Z3A.38 38 weeks gestation of pregnancy; Z28.310 Unvaccinated for COVID-19
CPT/HCPCS: 36415; 85025; 86780; 86850; 86900; 86901